=== PATIENT | female | born 1995 | race Caucasian/White ===

== ENCOUNTER 2023-02-20 11:14 | Outpatient (CLI) | payer BC, MEDICAID, SELFPAY | END 2023-02-20 11:15 | disposition home or self-care (01) | LOC: RAD CLINIC 02-22 13:28 → ORTOACUTE 02-22 13:28 | PROVIDERS: PCP Nurse Practitioner Family; Visit Provider Physician Assistant | DX: S62.632G Displaced fracture of distal phalanx of right middle finger, subsequent encounter for fracture with delayed healing; W17.89XD Other fall from one level to another, subsequent encounter | CPT/HCPCS: 73130 ==

== ENCOUNTER 2023-02-20 16:28 | Day surgery (SDC) | payer BC, MEDICAID, SELFPAY ==
--- NOTE | 2023-02-20 | XR_ITS ---
WS: [id number] INTRAOPERATIVE TECHNIQUE: 1 Spot fluoroscopic images for intraoperative purposes. FLUOROSCOPY TIME: 25 seconds CLINICAL INFORMATION: DUNG PICS COMPARISON: None. FINDINGS: Images obtained for intraoperative purposes IMPRESSION: Images obtained for intraoperative purposes.
[2023-02-20 16:35] VITALS: BMI 29.9
[2023-02-20 16:43] VITALS: BP 125/80; PULSE 85; RESP 16; TEMP 36.6; O2SAT 100
[2023-02-20 17:05] LABS: OR HCG Qualitative Urine Negative (Negative)
[2023-02-20] MEDS: sodium chloride 0.9% 1,000 ML 30 ML IV (17:31)
[2023-02-20] MEDS: scopolamine 1.5 Patch 1 PATCH TRANSDERMA (17:31)
[2023-02-20] MEDS: ketorolac 30 mg/mL INJ IVP (17:33)
[2023-02-20] MEDS: ondansetron 2 mg/ML SDV 2 mL 4 MG IVP (17:34)
[2023-02-20] MEDS: acetaminophen 1,000 MG/100 ML PIGGYBACK 400 MG IV (17:37)
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
--- NOTE | 2023-02-20 18:21 | W.PM.OPSUD ---
Surgery/Procedure H&P Update DATE OF PROCEDURE: February 20, 2023 DATE H&P PERFORMED: 02/20/23 H&P UPDATE INFORMATION: I have reviewed H&P completed within last 30 days, I have examined patient prior to procedure and No changes to prior documentation PREOP DIAGNOSIS: Right middle finger traumatic amputation PRIMARY INDICATION FOR PROCEDURE: Right middle finger traumatic amputation PLANNED PROCEDURE: Operation Date: 02/20/23 17:50 Proposed Procedures p Right middle finger amputation revision(Right) - Wang Maki DO
[2023-02-20] MEDS: midazolam 1 mg/mL INJ 2 mL 2 MG IVP (18:25)
[2023-02-20] MEDS: ceFAZolin 2,000 MG in sodium chloride 0.9% (plus) 50 ML 100 MG IV (18:28)
[2023-02-20] MEDS: ceFAZolin 1,000 mg SDV 1000 MG IRRIGATION (19:19)
[2023-02-20] MEDS: BUPivacaine 0.5% INJ 30 mL 5 ML INJECTION (19:20)
[2023-02-20] MEDS: ROPivacaine 0.5% SDV 30 mL 25 MG INJECTION (19:22)
--- NOTE | 2023-02-20 19:25 | SUR.OPER ---
RIGHT MIDDLE FINGER TOURNIQUET TIME 13 MINUTES
--- NOTE | 2023-02-20 19:26 | SUR.OPER ---
RIGHT MIDDLE FINGER TOURNIQUET 37 MINUTES
[2023-02-20 19:33] VITALS: BP 116/64; PULSE 88; RESP 16; TEMP 36.1; O2SAT 98
--- NOTE | 2023-02-20 19:33 | P.BOP_ITS ---
Date of Procedure: [February 20, 2023] Surgeon: [Dr. Shanthi DO] Radio Survey Worker(s): [Soren Maki PA-C] Procedure(s) performed: [Right middle finger amputation revision] Findings of the procedure(s): [Right middle finger traumatic amputation] Estimated blood loss: [2 ml] Specimen(s) removed: [Distal fingertip] Post-operative diagnosis: [Right middle finger traumatic amputation]
--- NOTE | 2023-02-20 19:35 | PM.PACU ---
PACU note Narrative: Patient is a 27-year-old female just underwent a right middle finger amputation revision. Patient transferred to PACU in stable condition. Pain is well controlled. Dressing on hand is dry and in place. Patient's fingers are warm and well-perfused. Patient can wiggle fingers. normal cap refill under 2 seconds. Patient has normal elbow range of motion. Unable to assess sensation to hand due to residual localized anesthetic. Exam: awake Disposition: discharged
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
[2023-02-20 19:40] VITALS: BP 114/82; PULSE 83; RESP 16; O2SAT 98
[2023-02-20 19:47] VITALS: BP 138/81; PULSE 71; RESP 14; TEMP 36.4; O2SAT 99
--- NOTE | 2023-02-20 19:49 | P.PCN_ITS ---
PACU note Narrative: VSS, Good respiratory effort, report to COLD WORKING INSPECTOR Exam: awake
--- NOTE | 2023-02-20 19:49 | PM.PACU ---
PACU note Narrative: VSS, Good respiratory effort, report to CIVILIAN JAIL OFFICER Exam: awake
[2023-02-20 20:10] VITALS: BP 126/89; PULSE 71; RESP 14; O2SAT 98
[2023-02-20 21:07] VITALS: BP 133/78; PULSE 72; RESP 16; TEMP 36.7; O2SAT 99
== END 2023-02-20 21:05 | disposition home or self-care (01) ==
PROVIDERS: Anesthesiology; PCP Nurse Practitioner Family; Visit Provider Student in an Organized Health Care Education/Training Program
PROC: (CPT 26951; principal; 2023-02-20 17:40)
DX: S68.122A Partial traumatic metacarpophalangeal amputation of right middle finger, initial encounter (principal); W19.XXXA Unspecified fall, initial encounter; S62.632G Displaced fracture of distal phalanx of right middle finger, subsequent encounter for fracture with delayed healing; W17.89XD Other fall from one level to another, subsequent encounter
CPT/HCPCS: 26951; 73120; 73130; 76000; 81025; 84703; J0131; J0690; J1885; J2250; J2405; J2704; J2795; J3010; J3490; J7030

== ENCOUNTER → 2023-02-22 13:19 | Outpatient (BNVA) | payer BC, MEDICAID, SELFPAY | PROVIDERS: PCP Nurse Practitioner Family; Referring Provider Nurse Practitioner Family; Visit Provider Physician Assistant | DX: S22.009A Unspecified fracture of unspecified thoracic vertebra, initial encounter for closed fracture (principal); S22.048A Other fracture of fourth thoracic vertebra, initial encounter for closed fracture; V87.8XXA Person injured in other specified noncollision transport accidents involving motor vehicle (traffic), initial encounter | CPT/HCPCS: 72072; 72100 ==

== ENCOUNTER → 2023-09-04 07:53 | Outpatient (BNVA) | payer BC, MEDICAID, SELFPAY | PROVIDERS: PCP Nurse Practitioner Family; Visit Provider Nurse Practitioner Women's Health | DX: N92.6 Irregular menstruation, unspecified (principal) | CPT/HCPCS: 81025; 84702; 86850; 86900 ==

== ENCOUNTER → 2023-10-02 13:28 | Outpatient (BNVA) | payer BC, MEDICAID, SELFPAY | PROVIDERS: PCP Nurse Practitioner Family; Visit Provider Nurse Practitioner Women's Health | DX: N83.8 Other noninflammatory disorders of ovary, fallopian tube and broad ligament (principal) | CPT/HCPCS: 76830 ==

== ENCOUNTER → 2023-11-29 08:01 | Outpatient (BNVA) | payer OTHER, SELFPAY | PROVIDERS: Visit Provider Nurse Practitioner Women's Health | DX: N92.6 Irregular menstruation, unspecified (principal); N96 Recurrent pregnancy loss | CPT/HCPCS: 81025; 84702 ==

== ENCOUNTER 2023-12-01 13:18 | Outpatient (CLI) | payer OTHER, SELFPAY | END 2023-12-01 13:19 | disposition home or self-care (01) | PROVIDERS: Visit Provider Nurse Practitioner Women's Health | DX: N96 Recurrent pregnancy loss (principal) | CPT/HCPCS: 36415; 84702 ==

== ENCOUNTER 2023-12-10 10:52 | Emergency (ER) | payer OTHER, SELFPAY ==
--- NOTE | 2023-12-10 10:56 | USR_ITS ---
PROCEDURE INFORMATION: Exam: US , Transvaginal Exam date and time: 12/10/2023 11:18 AM Age: 28 years old Clinical indication: Screening exam; Routine US, uterus; Additional info: Approx 8 wks preg; Spotting LABS AND CLINICAL REPORTS: Last menstrual period start date: 10/26/2023 Gestational age (Established): 6 w 3 d Estimated due date (Established): 08/01/2024 TECHNIQUE: Imaging protocol: Real-time transvaginal obstetrical ultrasound of the maternal pelvis with image documentation. Transvaginal imaging was used for better evaluation of the fetus, adnexa, and/or cervix. COMPARISON: US transvaginal [id number] 10/02/2023 1:37 PM FINDINGS: Gestation: There is a intrauterine gestational sac with a Yolk sac measures 2.7 mm. A pole is not visible. BIOMETRY: Mean sac diameter: 1.4 cm. EGA (MSD) is 6 w 2 d The uterus shows unremarkable myometrial echogenicity. The uterus measures 8.4 cm x 3.9 cm x 5 cm The right ovary measures 2.3 cm x 2 cm x 2.5 cm. The left ovary 3.3 cm x 3.6 cm x 3.8 cm. there is a left ovarian cyst which appears benign measuring 1.9 cm x 2 cm x 1.8 cm. US/US OB transvaginal [id number] IMPRESSION: 1. There is an intrauterine gestational sac and yolk sac without a pole 2. The gestational sac diameter of 1.4 cm, 6 weeks 2 days gestational age 3. Benign cyst left ovary. 4. Negative uterus and cervix 5. Negative right ovary.
[2023-12-10 11:41] VITALS: BP 147/79; PULSE 92; RESP 18; TEMP 36.8; O2SAT 100; BMI 31.4
--- NOTE | 2023-12-10 11:46 | W.ED.FEMALGU ---
HPI - Female Genitourinary General: Chief complaint: Vaginal Bleeding Stated complaint: spotting (8wks preg) Time Seen by Provider: 12/10/23 11:00 Source: patient Mode of arrival: ambulatory Limitations: no limitations History of Present Illness: Patient is a 28-year-old [id number] female at approximately 8 weeks here for spotting x 2 days. States she is noticing bright red blood only when she wipes. She has not noticed any blood otherwise. She is not having any pelvic pain or cramping. has been confirmed through [facility]. Has a dating US scheduled 12/17. Blood type B+. MD elicited complaint: vaginal bleeding and possible miscarriage Onset (ago): day(s) (yesterday) Severity: mild Vaginal discharge: none Vaginal bleeding: scant Exacerbating factors: none Relieving factors: none Associated symptoms: Reports no associated symptoms; Deny abdominal pain or nausea Treatment prior to arrival: none Sexual activity: Yes Patient : Yes Related Data Previous Rx's Medication Instructions Recorded cephalexin 500 mg capsule 500 mg PO Q6H 7 days #28 caps 11/29/23 Allergies Allergy/AdvReac Type Severity Reaction Status Date / Time No Known Allergies Allergy Verified 12/10/23 11:44 Review of Systems Const: Denies: fever(s) Card: Denies: chest pain Resp: Denies: dyspnea GI: Denies: abdominal pain, nausea, vomiting or change in bowel habits : Denies: flank pain, difficulty voiding, dysuria, urinary frequency, urinary urgency or urinary hesitancy Neuro: Denies: dizziness [facility] ED PFSH: Medical History Depression Family History Mother Hyperlipidemia Father Hypertension Diabetes Denies family history of Colon cancer Ovarian cancer Heart disease Breast cancer Uterine cancer Thyroid disease Stroke Social History Smoking and tobacco/nicotine status: never used tobacco/nicotine Alcohol intake: never Physical Exam Const: COMMON NORMALS: no acute distress, average body habitus, patient oriented x3, no limitations, healthy appearing, alert and well nourished Resp: COMMON NORMALS: normal respiratory effort GI: COMMON NORMALS: Normal to inspection, nondistended, normoactive bowel sounds present, Soft to palpation, non-tender, No hepatosplenomegaly present and no masses PALPATION: Yes Soft to palpation and Yes No hepatosplenomegaly present : COMMON NORMALS: Yes no CVA tenderness BLADDER/KIDNEY EXAM: Yes no CVA tenderness OTHER: deferred Back/Pelvis: COMMON NORMALS: no CVA tenderness Neuro: BIANCA COMA SCALE: document GCS findings Bianca coma scale eye opening: Spontaneous [place] coma scale verbal response: Orientated [place] coma scale motor response: Obey commands Bianca coma scale total score: 15 COMMON NORMALS: patient oriented x3 SENSORIUM/ORIENTATION: Yes alert Course Vital Signs: Vital signs: Vital Signs Temperature 98.3 F 12/10/23 11:41 Pulse Rate 88 12/10/23 12:58 Respiratory Rate 18 12/10/23 11:41 Blood Pressure 143/88 12/10/23 12:58 Pulse Oximetry 99 12/10/23 12:58 Oxygen Delivery Me thod Room Air 12/10/23 11:41 MDM - Female Medical Decision Making Patient here for very light spotting only noticeable when she wipes. Blood work overall is unremarkable. Her hCG is over 19,000. Last hCG performed was on 11/30 and was 950. US today showing an intrauterine gestational sac and yolk sac without a pole. Most likely secondary to the very early as they got her at 6w2d gestation. She already has a repeat ultrasound scheduled for 12/17-recommend she keep this. Return to ED precautions given. Medical Records I reviewed the patient's medical records. Lab Data I reviewed the patient's lab results. 12/10/23 11:51 12/10/23 11:51 Radiology Impressions Transvaginal US 12/10/23 10:56 IMPRESSION: 1. There is an intrauterine gestational sac and yolk sac without a pole 2. The gestational sac diameter of 1.4 cm, 6 weeks 2 days gestational age 3. Benign cyst left ovary. 4. Negative uterus and cervix 5. Negative right ovary. Laboratory Results WBC 6.27 10^3/uL (3.29-11.43) 12/10/23 11:51 RBC 3.97 10^6/uL (3.85-5.65) 12/10/23 11:51 Hgb 12.70 g/dL (11.27-16.99) 12/10/23 11:51 Hct 35.8 % (36-47) L 12/10/23 11:51 MCV 90.2 fl (85-98) 12/10/23 11:51 MCH 32.0 pg (27-33) 12/10/23 11:51 MCHC 35.5 g/dL (30-55) 12/10/23 11:51 RDW 13.0 % (12.1-15.1) 12/10/23 11:51 Plt Count 198 10^3/cmm (157-399) 12/10/23 11:51 MPV 11.2 fL (7.4-10.4) H 12/10/23 11:51 Neut % (Auto) 70.8 % 12/10/23 11:51 Lymph % (Auto) 22.5 % 12/10/23 11:51 [place] % (Auto) 5.9 % 12/10/23 11:51 Eos % (Auto) 0.0 % 12/10/23 11:51 Baso % (Auto) 0.5 % 12/10/23 11:51 Neut # (Auto) 4.44 10^3/uL (1.8-7.7) 12/10/23 11:51 Lymph # (Auto) 1.4 10^3/uL (0.8-4.8) 12/10/23 11:51 [place] # (Auto) 0.4 10^3/uL (0.2-0.9) 12/10/23 11:51 Eos # (Auto) 0.0 10^3/uL (0.0-0.8) 12/10/23 11:51 Baso # (Auto) 0.0 10^3/uL (0.0-0.1) 12/10/23 11:51 Nucleated RBC % (auto) 0 % 12/10/23 11:51 Nucleated RBCs # 0.0 /100WBC 12/10/23 11:51 Sodium 139 mmol/L (136-145) 12/10/23 11:51 Potassium 3.8 mmol/L (3.5-5.1) 12/10/23 11:51 Chloride 106 mmol/L (98-107) 12/10/23 11:51 Carbon Dioxide 24 mmol/L (22-29) 12/10/23 11:51 Anion Gap 12.8 (5-19) 12/10/23 11:51 BUN 7 mg/dL (6-20) 12/10/23 11:51 Creatinine 0.6 mg/dL (0.5-0.9) 12/10/23 11:51 GFR Calculation 119.0 mL/min (90-130) 12/10/23 11:51 Glucose 99 mg/dL (65-115) 12/10/23 11:51 Calculated Osmolality 286 mOsm/kg (285-295) 12/10/23 11:51 Calcium 8.5 mg/dL (8.5-10.5) 12/10/23 11:51 Total Bilirubin 1.3 mg/dL (0.15-1.2) H 12/10/23 11:51 AST 15 U/L (0-32) 12/10/23 11:51 ALT 13 U/L (0-33) 12/10/23 11:51 Alkaline Phosphatase 56 U/L (35-105) 12/10/23 11:51 Total Protein 7.0 g/dL (6.6-8.7) 12/10/23 11:51 Albumin 4.2 g/dL (3.5-5.2) 12/10/23 11:51 Globulin 2.8 g/dL (1.3-4.6) 12/10/23 11:51 Ser , Semi-Qnt 18673.00 mIU/mL 12/10/23 11:51 All radiology interpretation(s) finalized by discharge Discharge Plan Discharge Patient Disposition: Home Clinical Impression: Bleeding in early Condition: Stable Prescriptions: No Action cephalexin 500 mg capsule 500 mg PO Q6H 7 Days Qty: 28 0RF Rx Instructions: take one tab four times daily for seven days Discharge Orders: Discharge ED (Routine); Ordered 12/10/23 Ordered By: Rachael Reynoso Referrals: Jenna Lott NP [Primary Care Provider] - Activity Restrictions/Additional Instructions: As we discussed, your hCG is seemingly rising appropriately. Ultrasound today showing an intrauterine gestational sac and yolk sac but no pole at this time. I suspect this is secondary to a very early gestation. Recommend you continue plan for repeat ultrasound on 12/17. Please follow-up with women's health. You may return to the emergency department for onset of abdominal/pelvic pain, severe vaginal bleeding, or any other concerns you may have. Coding Level of Care Code ED Latex Caster for Immanuel Allan
[2023-12-10 12:02] LABS: Basophils % 0.5 %; Hematocrit 35.8 % (36-47); Lymphocytes # 1.4 10^3/uL (0.8-4.8); Lymphocytes % 22.5 %; Mean Corpuscular HGB Conc 35.5 g/dL (30-55); Mean Corpuscular Volume 90.2 fl (85-98); Mean Platelet Volume 11.2 fL (7.4-10.4); Monocytes # 0.4 10^3/uL (0.2-0.9); Monocytes % 5.9 %; Neutrophils # 4.44 10^3/uL (1.8-7.7); Neutrophils % 70.8 %; Nucleated Red Blood Cells % 0 %; Platelet Count 198 10^3/cmm (157-399); Red Blood Count 3.97 10^6/uL (3.85-5.65); White Blood Count 6.27 10^3/uL (3.29-11.43)
[2023-12-10 12:37] LABS: Alanine Aminotransferase 13 U/L (0-33); Albumin Level 4.2 g/dL (3.5-5.2); Alkaline Phosphatase 56 U/L (35-105); Anion Gap 12.8 (5-19); Aspartate Amino Transferase 15 U/L (0-32); Blood Urea Nitrogen 7 mg/dL (6-20); Calcium 8.5 mg/dL (8.5-10.5); Carbon Dioxide 24 mmol/L (22-29); Chloride 106 mmol/L (98-107); Creatinine Clr Calc Pharmacy 156.3757; Globulin 2.8 g/dL (1.3-4.6); Glucose 99 mg/dL (65-115); Osmolality Calculated 286 mOsm/kg (285-295); Potassium 3.8 mmol/L (3.5-5.1); Sodium 139 mmol/L (136-145); Total Bilirubin 1.3 mg/dL (0.15-1.2)
[2023-12-10 12:58] VITALS: BP 143/88; PULSE 88; O2SAT 99
== END 2023-12-10 12:59 | disposition home or self-care (01) ==
PROVIDERS: Emergency Provider Physician Assistant; PCP Nurse Practitioner Women's Health
DX: O20.9 Hemorrhage in early pregnancy, unspecified (principal); Z3A.08 8 weeks gestation of pregnancy
CPT/HCPCS: 36415; 76817; 80053; 84702; 85025; 99284

== ENCOUNTER → 2023-12-18 08:06 | Outpatient (BNVA) | payer OTHER, MEDICAID, SELFPAY | PROVIDERS: PCP Nurse Practitioner Women's Health; Visit Provider Nurse Practitioner Women's Health | DX: Z36.87 Encounter for antenatal screening for uncertain dates (principal); Z3A.01 Less than 8 weeks gestation of pregnancy | CPT/HCPCS: 76801 ==

== ENCOUNTER → 2023-12-31 11:04 | Outpatient (BNVA) | payer BC, MEDICAID, SELFPAY | PROVIDERS: Visit Provider Nurse Practitioner Women's Health | DX: Z36.9 Encounter for antenatal screening, unspecified (principal) | CPT/HCPCS: 76801 ==

== ENCOUNTER → 2024-01-10 09:14 | Outpatient (BNVA) | payer BC, MEDICAID, SELFPAY | PROVIDERS: Visit Provider Nurse Practitioner Women's Health | DX: Z34.00 Encounter for supervision of normal first pregnancy, unspecified trimester (principal) | CPT/HCPCS: 80307; 84315; 84443; 85025; 86592; 86762; 86803; 86850; 86900; 87086; 87340; 87491; 87591; 87806 ==

== ENCOUNTER → 2024-01-30 14:29 | Outpatient (BNVA) | payer MEDICAID, SELFPAY | PROVIDERS: Visit Provider Obstetrics & Gynecology | DX: Z34.90 Encounter for supervision of normal pregnancy, unspecified, unspecified trimester (principal) | CPT/HCPCS: 84315; 88175 ==

== ENCOUNTER 2024-02-17 12:47 | Emergency (ER) | payer MEDICAID, SELFPAY ==
[2024-02-17 13:45] LABS: Basophils % 0.3 %; Eosinophils # 0.1 10^3/uL (0.0-0.8); Eosinophils % 0.9 %; Hematocrit 31.9 % (36-47); Lymphocytes # 1.4 10^3/uL (0.8-4.8); Lymphocytes % 17.6 %; Mean Corpuscular HGB Conc 34.5 g/dL (30-55); Mean Corpuscular Hemoglobin 32.1 pg (27-33); Mean Platelet Volume 11.2 fL (7.4-10.4); Monocytes # 0.4 10^3/uL (0.2-0.9); Neutrophils # 5.92 10^3/uL (1.8-7.7); Neutrophils % 75.9 %; Nucleated Red Blood Cells % 0 %; Platelet Count 188 10^3/cmm (157-399); Red Blood Count 3.43 10^6/uL (3.85-5.65); Red Cell Distribution Width 14.2 % (12.1-15.1); White Blood Count 7.79 10^3/uL (3.29-11.43)
[2024-02-17 13:50] VITALS: BP 113/75; PULSE 80; RESP 14; TEMP 36.7; O2SAT 100
[2024-02-17 14:04] LABS: Alanine Aminotransferase 18 U/L (0-33); Albumin Level 3.5 g/dL (3.5-5.2); Alkaline Phosphatase 70 U/L (35-105); Anion Gap 15.8 (5-19); Aspartate Amino Transferase 15 U/L (0-32); Blood Urea Nitrogen 7 mg/dL (6-20); Calcium 8.7 mg/dL (8.5-10.5); Carbon Dioxide 21 mmol/L (22-29); Chloride 105 mmol/L (98-107); Creatinine Clr Calc Pharmacy 119.9804; Globulin 2.8 g/dL (1.3-4.6); Glomerular Filtration Rate 85.4 mL/min (90-130); Glucose 86 mg/dL (65-115); Osmolality Calculated 283 mOsm/kg (285-295); Potassium 3.8 mmol/L (3.5-5.1); Sodium 138 mmol/L (136-145); Total Bilirubin 1.1 mg/dL (0.15-1.2); Total Protein 6.3 g/dL (6.6-8.7)
--- NOTE | 2024-02-19 16:05 | PC.NURSE ---
Contacted pt due to LWBS on 02/17/24. Pt states she is doing well and followed up with OB.
== END 2024-02-17 17:14 | disposition left against medical advice (07) ==
PROVIDERS: Emergency Medicine; Emergency Provider Family Medicine
DX: Z53.21 Procedure and treatment not carried out due to patient leaving prior to being seen by health care provider (principal)
CPT/HCPCS: 36415; 80053; 85025; 99283

== ENCOUNTER → 2024-02-18 13:51 | Outpatient (BNVA) | payer MEDICAID, SELFPAY | PROVIDERS: Visit Provider Nurse Practitioner Women's Health | DX: Z36.9 Encounter for antenatal screening, unspecified (principal) | CPT/HCPCS: 76815; 84315 ==

== ENCOUNTER → 2024-03-04 09:53 | Outpatient (BNVA) | payer MEDICAID, SELFPAY | PROVIDERS: Visit Provider Nurse Practitioner Women's Health | DX: Z34.90 Encounter for supervision of normal pregnancy, unspecified, unspecified trimester (principal); Z3A.10 10 weeks gestation of pregnancy | CPT/HCPCS: 82105; 84315 ==

== ENCOUNTER → 2024-03-12 14:23 | Outpatient (BNVA) | payer BC, SELFPAY | PROVIDERS: Visit Provider Obstetrics & Gynecology | DX: Z36.9 Encounter for antenatal screening, unspecified (principal) | CPT/HCPCS: 76805 ==

== ENCOUNTER → 2024-03-21 14:16 | Outpatient (BNVA) | payer BC, SELFPAY | PROVIDERS: Visit Provider Obstetrics & Gynecology | DX: Z34.90 Encounter for supervision of normal pregnancy, unspecified, unspecified trimester (principal) | CPT/HCPCS: 84315 ==

== ENCOUNTER → 2024-04-10 13:34 | Outpatient (BNVA) | payer BC, SELFPAY | PROVIDERS: Visit Provider Obstetrics & Gynecology | DX: Z36.9 Encounter for antenatal screening, unspecified (principal) | CPT/HCPCS: 76816 ==

== ENCOUNTER → 2024-04-30 13:17 | Outpatient (BNVA) | payer BC, SELFPAY | PROVIDERS: Visit Provider Nurse Practitioner Women's Health | DX: Z34.90 Encounter for supervision of normal pregnancy, unspecified, unspecified trimester (principal) | CPT/HCPCS: 84315 ==

== ENCOUNTER → 2024-05-16 14:18 | Outpatient (BNVA) | payer BC, SELFPAY | PROVIDERS: Visit Provider Obstetrics & Gynecology | DX: Z34.90 Encounter for supervision of normal pregnancy, unspecified, unspecified trimester (principal) | CPT/HCPCS: 82950; 84315; 85025 ==

== ENCOUNTER → 2024-05-26 08:56 | Outpatient (BNVA) | payer BC, SELFPAY | PROVIDERS: Visit Provider Obstetrics & Gynecology | DX: Z34.80 Encounter for supervision of other normal pregnancy, unspecified trimester (principal) | CPT/HCPCS: 84315 ==

== ENCOUNTER → 2024-06-09 09:00 | Outpatient (BNVA) | payer BC, SELFPAY | PROVIDERS: Visit Provider Obstetrics & Gynecology | DX: Z34.90 Encounter for supervision of normal pregnancy, unspecified, unspecified trimester (principal) | CPT/HCPCS: 84315 ==

== ENCOUNTER 2024-06-14 21:08 | Outpatient (CLI) | payer BC, MEDICAID, SELFPAY ==
[2024-06-14] VITALS (9 sets, daily range): BP systolic 115–150; BP diastolic 63–84; PULSE 97–123; RESP 18; TEMP 37.2
[2024-06-14 21:37] LABS: Bacteria Urine 1+ /hpf; RBC Urine 0-2 /hpf (0-2)
[2024-06-14 21:39] LABS: Add Urine Culture? No; Bilirubin Urine Neg (Negative); Blood Urine Neg (Negative); Glucose Urine UA Norm (Normal); Ketones Urine Negative (Negative); Leukocyte Esterase Urine 1+ (Negative); Nitrate Urine Negative (Negative); Protein Urine Neg (Negative); Specific Gravity, Urine 1.015 (1.005-1.030); Urine Appearance Cloudy (CLEAR); Urine Color Yellow (Yellow); Urobilinogen Urine Norm (Negative); pH Urine 9 (5-7)
[2024-06-15] VITALS: BP 115/63; PULSE 104; O2SAT 95
[2024-06-15] MEDS: nitrofurantoin SR (BID) 100 mg Capsule PO ×2 (00:03)
[2024-06-15] MEDS: acetaminophen 500 mg Tablet 1000 MG PO (00:04)
== END 2024-06-15 00:10 | disposition home or self-care (01) ==
LOC: OPOB 21:13 → OBGYN 21:14
PROVIDERS: Visit Provider Obstetrics & Gynecology
DX: O26.899 Other specified pregnancy related conditions, unspecified trimester (principal); Z3A.00 Weeks of gestation of pregnancy not specified; R68.83 Chills (without fever); R51.9 Headache, unspecified; R23.2 Flushing
CPT/HCPCS: 59025; 81001; 99211

== ENCOUNTER → 2024-06-24 12:27 | Outpatient (BNVA) | payer BC, MEDICAID, SELFPAY | PROVIDERS: Visit Provider Nurse Practitioner Women's Health | DX: Z34.90 Encounter for supervision of normal pregnancy, unspecified, unspecified trimester (principal) | CPT/HCPCS: 76816; 84315; 87086 ==

== ENCOUNTER 2024-07-06 18:00 | Outpatient (CLI) | payer BC, MEDICAID, SELFPAY ==
[2024-07-06] VITALS (11 sets, daily range): BP systolic 119–135; BP diastolic 67–82; PULSE 82–100; RESP 16; O2SAT 98; BMI 37.9
[2024-07-06 19:00] LABS: Basophils % 0.3 %; Eosinophils # 0.1 10^3/uL (0.0-0.8); Eosinophils % 0.9 %; Hematocrit 30.7 % (36-47); Lymphocytes # 1.6 10^3/uL (0.8-4.8); Lymphocytes % 14.4 %; Mean Corpuscular HGB Conc 35.2 g/dL (30-55); Mean Corpuscular Hemoglobin 32.3 pg (27-33); Mean Corpuscular Volume 91.9 fl (85-98); Mean Platelet Volume 11.5 fL (7.4-10.4); Monocytes # 0.5 10^3/uL (0.2-0.9); Monocytes % 4.6 %; Neutrophils # 9.01 10^3/uL (1.8-7.7); Neutrophils % 79.3 %; Nucleated Red Blood Cells % 0 %; Platelet Count 167 10^3/cmm (157-399); Red Blood Count 3.34 10^6/uL (3.85-5.65); Red Cell Distribution Width 14.6 % (12.1-15.1); White Blood Count 11.36 10^3/uL (3.29-11.43)
[2024-07-06 19:07] LABS: Bacteria Urine 2+ /hpf; RBC Urine 0-2 /hpf (0-2)
[2024-07-06 19:16] LABS: Add Urine Microscopic? YES; Bilirubin Urine Negative (Negative); Blood Urine Negative (Negative); Glucose Urine UA Trace (Normal); Ketones Urine 1+ (Negative); Leukocyte Esterase Urine 1+ (Negative); Nitrate Urine Negative (Negative); Protein Urine Negative (Negative); Specific Gravity, Urine 1.023 (1.005-1.030); Urine Appearance Clear (CLEAR); Urine Color Orange (Yellow); pH Urine 5.5 (5-7)
[2024-07-06 19:18] LABS: Alanine Aminotransferase 17 U/L (0-33); Albumin Level 3.2 g/dL (3.5-5.2); Alkaline Phosphatase 128 U/L (35-105); Anion Gap 17.5 (5-19); Aspartate Amino Transferase 17 U/L (0-32); Blood Urea Nitrogen 6 mg/dL (6-20); Carbon Dioxide 18 mmol/L (22-29); Chloride 103 mmol/L (98-107); Creatinine Clr Calc Pharmacy 258.5526; Globulin 2.9 g/dL (1.3-4.6); Glomerular Filtration Rate 190.1 mL/min (90-130); Glucose 118 mg/dL (65-115); Osmolality Calculated 279 mOsm/kg (285-295); Potassium 3.5 mmol/L (3.5-5.1); Sodium 135 mmol/L (136-145); Total Bilirubin 0.8 mg/dL (0.15-1.2); Total Protein 6.1 g/dL (6.6-8.7); Uric Acid 3.7 mg/dL (2.4-5.7)
[2024-07-06 19:24] LABS: UPRO/UCREAT Ratio 0.08 mg/mg CR; Urine Creatinine 132 mg/dL (28-217); Urine Protein Random 10 mg/dL
[2024-07-06] MEDS: SODIUM CHLORIDE 0.9% IV (20:07)
[2024-07-06] MEDS: CEFAZOLIN IV (20:07)
[2024-07-06] MEDS: sodium chloride 0.9% 500 ML 125 ML IV (20:07)
[2024-07-06 20:47] LABS: Add Urine Culture? Yes
== END 2024-07-06 20:51 | disposition home or self-care (01) ==
LOC: OPOB 18:03 → OBGYN 18:04
PROVIDERS: Visit Provider Obstetrics & Gynecology
DX: O13.9 Gestational [pregnancy-induced] hypertension without significant proteinuria, unspecified trimester (principal); Z3A.00 Weeks of gestation of pregnancy not specified; H53.9 Unspecified visual disturbance
CPT/HCPCS: 36415; 59025; 80053; 81001; 82570; 84156; 84550; 85025; 87086; 99211; J0690; J7040

== ENCOUNTER 2024-07-07 14:50 | Outpatient (CLI) | payer BC, MEDICAID, SELFPAY ==
[2024-07-07] VITALS (9 sets, daily range): BP systolic 125–135; BP diastolic 71–79; PULSE 76–88; RESP 16–17; BMI 38.5
== END 2024-07-07 16:45 | disposition home or self-care (01) ==
LOC: OPOB 14:51 → OBGYN 14:52
PROVIDERS: Visit Provider Obstetrics & Gynecology
DX: O13.9 Gestational [pregnancy-induced] hypertension without significant proteinuria, unspecified trimester (principal); Z3A.00 Weeks of gestation of pregnancy not specified
CPT/HCPCS: 59025; 84315; 87081; 99211

== ENCOUNTER → 2024-07-14 13:47 | Outpatient (BNVA) | payer BC, MEDICAID, SELFPAY | PROVIDERS: Visit Provider Obstetrics & Gynecology | DX: Z34.80 Encounter for supervision of other normal pregnancy, unspecified trimester (principal) | CPT/HCPCS: 84315 ==

== ENCOUNTER 2024-07-15 07:00 | Outpatient (CLI) | payer BC, MEDICAID, SELFPAY ==
[2024-07-15 07:00] VITALS: RESP 17; BMI 38.0
[2024-07-15 07:06] VITALS: BP 146/78; PULSE 76
[2024-07-15 07:20] VITALS: BP 142/79; PULSE 90
[2024-07-15 07:35] VITALS: BP 132/74; PULSE 83
== END 2024-07-15 07:48 | disposition home or self-care (01) ==
LOC: OPOB 07:00 → OBGYN 07:01
PROVIDERS: Visit Provider Obstetrics & Gynecology
DX: O26.899 Other specified pregnancy related conditions, unspecified trimester (principal); Z3A.00 Weeks of gestation of pregnancy not specified; M54.31 Sciatica, right side
CPT/HCPCS: 59025; 99211

== ENCOUNTER 2024-07-17 20:31 | Outpatient (CLI) | payer BC, MEDICAID, SELFPAY ==
[2024-07-17] VITALS (14 sets, daily range): BP systolic 118–142; BP diastolic 64–80; PULSE 66–85; RESP 16–18; BMI 38.6
[2024-07-17] MEDS: oxyCODONE-APAP 5-325 mg Tablet 2 TAB PO (22:17)
== END 2024-07-17 23:39 | disposition home or self-care (01) ==
LOC: OPOB 20:32 → OBGYN 20:33
PROVIDERS: Visit Provider Obstetrics & Gynecology
DX: O26.899 Other specified pregnancy related conditions, unspecified trimester (principal); Z3A.00 Weeks of gestation of pregnancy not specified; M54.9 Dorsalgia, unspecified
CPT/HCPCS: 59025; 99211; J9999

== ENCOUNTER → 2024-07-21 14:07 | Outpatient (BNVA) | payer BC, SELFPAY | PROVIDERS: Visit Provider Obstetrics & Gynecology | DX: Z34.90 Encounter for supervision of normal pregnancy, unspecified, unspecified trimester (principal) | CPT/HCPCS: 84315 ==

== ENCOUNTER 2024-07-29 05:03 | Inpatient (IN) | payer BC, MEDICAID, SELFPAY ==
--- NOTE | 2024-07-24 08:14 | ANES.PREANE2 ---
Pre-Anesthetic Assessment Height/Weight: Height 5 ft 6 in Preop Diagnosis: Planned Operation Date: 07/29/24 07:20 Proposed Procedures p Section Repeat 80870, O34.219(Not Applicable) - Ida Blancas, DO Was Beta Andrew taken within 24 hours: N/A Was Clonidine taken within 24 hours: N/A Social No alcohol and No tobacco Exam alert, oriented x 3, clear to auscultation bilaterally and regular rate & rhythm Airway Submandibular: within normal limits Cervical ROM: within normal limits Mallampati: Class III Dentition: full Anesthetic Plan ASA status: 2 Anesthesia: Regional (specify below) Other: G2, P1 scheduled for planned . Prior emergent without issues Patient denies any issues during besides hypertension. No meds for this, they are just monitoring Patient does note a history of low vertebral fracture a year and a half ago. Denies any pulmonary issues Will obtain labs morning of procedure Plan for routine with spinal Medications/Allergies Home Medications ?Medication ?Instructions ?Recorded ?Confirmed ?Last Taken ?Type docosahexaenoic acid 200 mg 1 mg PO DAILY 01/10/24 07/21/24 07/17/24 History capsule ( DHA) ferrous sulfate 325 mg (65 mg 325 mg PO DAILY 04/30/24 07/21/24 07/16/24 History iron) tablet (Feosol) Fioricet 1 tab PO PRN PRN Migraines 07/17/24 07/21/24 07/15/24 History Tylenol 1,000 mg PO PRN PRN Pain, Moderate 07/17/24 07/21/24 07/17/24 12:00 History oxycodone-acetaminophen 5 mg-325 1 tab PO Q8H PRN pain 7 days #14 07/18/24 07/21/24 Unknown Rx mg tablet (Percocet) tabs Allergies Allergy/AdvReac Type Severity Reaction Status Date / Time No Known Allergies Allergy Verified 07/21/24 14:01 [facility] Anesthesia Medical History Depression Surgical History H/O: Family History Mother Hyperlipidemia Father Hypertension Diabetes Denies family history of Colon cancer Ovarian cancer Heart disease Breast cancer Uterine cancer Thyroid disease Stroke Social History Smoking and tobacco/nicotine status: never used tobacco/nicotine Alcohol intake: never
[2024-07-29] VITALS (99 sets, daily range): BP systolic 100–143; BP diastolic 53–86; PULSE 46–155; RESP 15–17; TEMP 36.4–36.6; O2SAT 91–100; BMI 38.4
--- OUTSIDE RECORDS SUMMARY | 2024-07-29 05:07 | XMS_ITS | Data Portability ---
Author Organization Geo GARDNER, Mauri [facility] Address [address] [place] [address] Care Team Providers Care Senior Trial Attorney Name Role Phone LALY GARBER Sheet Metal Roofer Assessment Encounter Date Assessment Date Assessment LastModified by Organization Details LastModified Time 06/05/2024 06/05/2024 ASSESSMENT: Likely urinary incontinence secondary to intra-abdominal pressure from vomiting in late third trimester. Differential includes rupture of membranes (unlikely given current cessation of fluid leakage). PLAN: - Treatment plan: Advise the patient to monitor for any further fluid leakage or recurrence of symptoms. Instruct on the use of a sanitary pad to monitor for amniotic fluid leakage. - Follow-up plan: Schedule a follow-up appointment with JACK MACHINE OPERATOR provider to ensure ongoing maternal- wellbeing and to reassess if further leakage occurs. - Referrals: None at this current juncture, given the cessation of symptoms. I reviewed the available patient chart and updated the problem list, medication list, and assessed the patient s pertinent positives and negatives. Plan of care discussed. Comments and questions addressed. Verbalized understanding. Patient offered and declined video/phone encounter. Patient assessed over asynchronous SMS communication for 40 minutes with 10 minutes spent documenting and care planning. Patient Location: [place] Provider Location: [place] marian Not available 06/05/2024 00:15:23 Plan of Treatment Reminders Order Date Submit Date Provider Last Modified By Organization Details Last Modified Time Details Appointments None record ed. Lab None record ed. Referral None record ed. Procedures None record ed. Surgeries None record ed. Imaging None record ed. Medication Orders None record ed. Patient TargetsNo targets recorded. Patient InstructionsNo instructions recorded. Reason for Referral None Reported. Problems Name Problem SNOMED Code Status Onset Date Resolution Date Notes Provider Name and Address Organization Details Recorded Time Migraine [id number] Active 025 NATHAN BECERRA NP [address], [address], [place], [address], MD [facility] 5 00:10:36 Asthma [id number] Active 025 NATHAN BECERRA NP [address], [address], [place], [address], MD [facility] 5 00:10:43 Problem Notes None recorded. Medical Equipment None Reported. Allergies No known drug allergies Medications Name Sig Start Date Stop Date Status Note LastModified by Organization Details LastModified Time ondansetron HCl 4 mg tablet 4 MG ORALLY EVERY 8 HOURS NEEDED FOR NAUSEA AND VOMITING 06/04 completed Not Available Not Available Not Available cephalexin 500 mg capsule TAKE 1 CAPSULE BY MOUTH FOUR TIMES A DAY FOR 7 DAYS 06/04 completed Not Available Not Available Not Available ferrous sulfate active Not Available Not Available Not Available butalbital- acetaminoph en-caffeine 50 mg-300 mg-40 mg capsule TAKE 1 CAPSULE BY MOUTH THREE TIMES DAILY NEEDED FOR PAIN 06/04 completed Not Available Not Available Not Available + DHA 28 mg iron-800 mcg-200 mg oral pack Take by oral route. active Not Available Not Available No t Available Vitals None Recorded Social History None recorded. Functional Status None recorded. Mental Status None recorded. Family History Nothing Reported. Medical History No medical history recorded. Gynecological HistoryNo gynecological history recorded. Obstetrics History GPAL:G 2 P 1 0 0 1 Type Value Full Term 1 Living 1 Total 2 Past Encounters Encounter ID Performer Location Encounter Start Date Encounter Closed Date Diagnosis/Indication Diagnosis SNOMED-CT Code Diagnosis ICD10 Code Diagnosis Note [id number] NATHAN BECERRA NP [facility] [address], [address] [place] [phone] 06/05/2024 00:13:21 06/13/2024 04:03:58 Health Concerns Section Related Observation LastModified by Organization Detai ls LastModified Time None Recorded Concern Status LastModified by Organization Details LastModified Time None Recorded Advance Directives Directive None Recorded Payers Insurance Date Sequence Insurance Name Policy Number Policy Tony Covered Member ID Tony Member ID Guarantor Name 05/12/2024 *SELF PAY* Mxa maury Gupta 06/03/2024 1 [employer] [place] ([place]ICA[place]ACEMENT - HMO) [id number] Stacy Gupta [id number] Stacy Gupta Notes Date Note Type Note Provider Name and Address Organization Details Recorded Time 06/05/2024 text/html 28yo patient at 31wk 5d gestation presented with acute onset of nausea followed by profuse vomiting and leakage of clear fluid, sufficient to soak shorts. The episode occurred approximately 10 minutes prior to initiating contact at 11:21 PM. The patient reports resolution of symptoms and feels well now. Prior to vomiting, the patient experienced abdominal discomfort with tightening and pain, which subsided post-emesis. The patient had urinated just two minutes before the vomiting episode and denies further fluid leakage. The patient confirms no current pain or discomfort, no further episodes of fluid leakage, and denies any other associated symptoms such as fever or chills. The patient has no known drug allergies and is currently taking vitamins and iron supplements. Her obstetric history includes one prior complicated by a breech presentation, with no other recent medical conditions barring a history of migraines and asthma. NATHAN BECERRA, ROUND KILN DRAWER [address], [address], [place], [address], - [facility] 06/05/2024 00:15:26 OBGyn Episode Ob Episode Information Episode Created Date Number of Fetuses Patient Bloodtype Patient rh Status Prepregnancy Weight lbs Domestic Partner Domestic Partner Phone Father Name Sleep Technologist Status 02/08/20 24 1 OPEN Fetus Data First Name Last Name Admitted to NICU Weight (g) Sex Living Outcome Pediatric Complications Fetus ID Race Codes Race Delivery Type [id number] Dennis Calculation Initial Dennis Date Initial Exam Date Initial Exam Provider Initial Ultrasound Date Last Menstrual Period Date Ultra Sound Weeks Gestation 08/02/2024 0 Eighteen To Twenty Week Dennis Update Ultra Sound Date Fundal Height At Umbil Quickening Date Ultra Sound Latest Weeks Gestation Final Dennis Confirmed By Final Dennis Confirmed Date Final Dennis Date Ultra Sound Latest Days Gestation 0 0 Pre- Flowsheet Flowsheet Date 06/05/2024 Osborn Score Blood Edema Fundus Height Fundus Units Glucose Ketones Leukocytes Nitrite Labor Signs Protein Cervic Dilation Cervic Effacement Cervic Station Type Weight in lbs Pre/Post Dialysis Refused BP Diastolic BP Location Tested BP Systolic BP Type Fetus Heart Rate Present Fetus Movement Comments Menstrual History Last Menstrual Date Menses Monthly On Bcp Conception Prior Menses Frequency Hcg Plus Date Menarche Onset Age Delivery Information Delivery Date Delivery Type Labor Anesthesia Weeks Gestation Incision Type Labor Labor Length Hrs Delivered By Post Complications Tubal Sterilization Discharge Date Comments Discharge Information Feeding Method Contraceptive Method Maternal HG B and HCT Levels
--- OUTSIDE RECORDS SUMMARY | 2024-07-29 05:07 | XMS_ITS ---
Author Organization Unknown Plan of Treatment Patient Care team information Name Category Status Period Participants - - Proposed period not known - - - Proposed period not known - - - Proposed period not known -
[2024-07-29 05:32] LABS: Basophils % 0.3 %; Eosinophils # 0.1 10^3/uL (0.0-0.8); Eosinophils % 1.5 %; Hematocrit 32.5 % (36-47); Lymphocytes # 1.5 10^3/uL (0.8-4.8); Lymphocytes % 20.9 %; Mean Corpuscular HGB Conc 35.1 g/dL (30-55); Mean Corpuscular Hemoglobin 31.8 pg (27-33); Mean Corpuscular Volume 90.8 fl (85-98); Mean Platelet Volume 11.6 fL (7.4-10.4); Monocytes # 0.4 10^3/uL (0.2-0.9); Monocytes % 6.1 %; Neutrophils # 5.06 10^3/uL (1.8-7.7); Neutrophils % 70.8 %; Nucleated Red Blood Cells % 0 %; Platelet Count 173 10^3/cmm (157-399); Red Blood Count 3.58 10^6/uL (3.85-5.65); Red Cell Distribution Width 13.9 % (12.1-15.1); White Blood Count 7.16 10^3/uL (3.29-11.43)
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
[2024-07-29] MEDS: sodium chloride 0.9% 1,000 ML 999 ML IV (06:00)
[2024-07-29 06:39] LABS: Amphetamines Screen Urine Negative (Negative); Barbiturates Screen Urine Negative (Negative); Benzodiazepines Screen Urine Negative (Negative); Cocaine Screen Urine Negative (Negative); Opiate Screen Urine Negative (Negative); PCP Screen Urine Negative (Negative); THC Screen Urine Negative (Negative)
[2024-07-29] MEDS: metoclopramide 5 mg/mL SDV 2 mL 10 MG IVP (06:47)
[2024-07-29] MEDS: citric acid-sodium citrate 30 mL UDC PO (06:47)
[2024-07-29] MEDS: famotidine 20 mg/2 mL INJ IVP (06:48)
--- NOTE | 2024-07-29 06:58 | P.ANESUD_ITS ---
Pre-Anesthetic Update Pre-Anesthetic Assessment: Date of Surgery/Procedure: 07/29/24 Preop Leisa gnosis: Planned Proposed Procedure: Operation Date: 07/29/24 07:20 Proposed Procedures p Section Repeat 94034, O34.219(Not Applicable) - Ida Blancas, DO Any changes to Pre-Anesthetic Assessment?: No Last Intake: Intake Last Liquid Date 07/28/24 Last Liquid Time 21:00 Last Solid Date 07/28/24 Last Solid Time 21:00 Labs Last 48hrs: Short CBC 07/29/24 Range/Units 05:15 WBC 7.16 (3.29-11.43) 10^ 3/uL Hgb 11.40 (11.27-16.99) g/ dL Hct 32.5 L (36-47) % MCV 90.8 (85-98) fl Plt Count 173 (157-399) 10^3/c mm Neut % (Auto) 70.8 % Neut # (Auto) 5.06 (1.8-7.7) 10^3/u L Blood Bank 07/29/24 05:15 Blood Type B Positive Rho(D) Type Rh positive Antibody Screen Negative Vitals: Pulse Rate 75 07/29/24 05:32 Respiratory Effort Spontaneous, Non- Labored 07/29/24 05:05 Respiratory Depth Normal 07/29/24 05:05 Respiratory Patter n Normal 07/29/24 05:05 Blood Pressure 133/82 07/29/24 05:32 Oxygen Delivery Me thod Room Air 07/29/24 05:05 Exam: Pre-Anes Outpt Exam: alert, oriented x 3, clear to auscultation bilaterally and regular rate & rhythm
--- NOTE | 2024-07-29 08:29 | P.OP_ITS ---
Operative Report Date of procedure: July 29, 2024 Pre-op diagnosis: 39.3-week IUP Previous section Scheduled repeat section Post-op diagnosis: Same as the above Rosemarie breech presentation Post-op findings: Body cord x 1 Procedure done: Repeat low-transverse section with delivery of a viable baby girl Surgeon: Ida Blancas DO Anesthesia: Spinal Estimated blood loss (mL): 500 Urine output (mL): 200 Complications: None Condition: stable Disposition: floor Brief History: 28-year-old female at 39.3 weeks gestation admitted to labor and delivery for scheduled repeat section delivery. TIARA 08/02/2024 by LMP and confirmed by first trimester ultrasound. course uncomplicated. Procedure: 28-year-old female G4, P1 at 39.3 weeks gestation admitted to labor and delivery for scheduled repeat section. Risk and benefits of the procedure to include bleeding, infection, injury to pelvic organs and anesthesia reviewed with patient in great detail and consents were signed. Patient was transported to surgical suite placed in the sitting position and anesthesia personnel placed spinal for operative and postop pain. Patient was positioned in the dorsolithotomy position and abdomen prepped and draped after Ludwig catheter placed. Skin testing confirmed adequate anesthesia. A Pfannenstiel incision was made through the previous scar and dissected to the fascia. The fascia was incised and was noted to be very thickened due to the previous scar. The rectus muscles were entered in the midline and the peritoneum opened bluntly. A bladder flap was created with Metzenbaums and pickups, and the bladder displaced inferiorly. A bladder blade was used to protect the bladder. A low transverse uterine incision was made and extended laterally bluntly. The amnion was entered with clear fluid noted. The baby girl was noted to be in a rosemarie breech presentation. An attempt to flex the left leg and the right leg failed. The buttocks was elevated through the incision allowing the legs to then be flexed and delivered left then right. The baby was then delivered to the level of the scapulas, rotating the left arm followed by the right arm delivered with the head being flexed and delivered easily. Body cord was noted and was easily reduced. Spontaneous robust cry was noted. The umbilical cord was clamped and cut and baby placed on the warmer for strategic marketing associate and nursing staff assessment. Arterial and venous pH were drawn and handed off. The placenta was manually removed from the uterus, Pitocin IV solution was started in a bolus manner. The uterus was wiped clean with a moist lap sponge. The uterus was left in the abdomen due to gross adhesions involving the fundal aspect of the uterus. The uterine incision was closed with 0 Vicryl in a running interlocking stitch with good approximation and hemostasis. A second layer using 2-0 Vicryl was used to oversew the first. With good hemostasis being assured the rectus muscle was approximated with 2-0 Vicryl. The fascia was approximated with 0 Vicryl in a running stitch. The subcu fat approximated with 2-0 Vicryl and the skin closed with 4-0 Vicryl in a subcuticular stitch. The incision was cleansed sponge dried and covered with a pressure dressing. Needle and instrument count correct x 2. Mother and are both in stable and satisfactory condition. Weight?7 pounds 10 Apgars 9/9 Related Problem List Diagnoses (1) Delivery by section: (2) 39 weeks gestation of : (3) H/O: : (4) Breech presentation, antepartum:
--- NOTE | 2024-07-29 09:30 | ANE.PACU2 ---
Inpatient post-anesthesia follow up: Airway intact: Yes Vital signs: Temperature 97.7 F Pulse Rate 59 Respiratory Rate 17 Blood Pressure 117/67 Pulse Oximetry 100 Oxygen Delivery Me thod Room Air Oxygen Flow Rate Fraction of Inspir ed Oxygen Hydration adequate: Yes Nausea and vomiting: No Pain level: 1 Mental status: Baseline
[2024-07-29] MEDS: dextrose 5%-lactated ringers 1,000 ML 125 ML IV (10:55)
[2024-07-29] MEDS: HYDROcodone-acetaminophen 5-325 mg Tablet PO ×4 (11:17→23:10)
[2024-07-29] MEDS: ketorolac 30 mg/mL INJ IVP (13:41)
[2024-07-29] MEDS: docusate sodium 100 mg Capsule 200 MG PO (18:22)
[2024-07-29 20:18] LABS: Hematocrit 27.3 % (36-47); Mean Corpuscular HGB Conc 34.1 g/dL (30-55); Mean Corpuscular Hemoglobin 31.7 pg (27-33); Mean Corpuscular Volume 93.2 fl (85-98); Mean Platelet Volume 11.5 fL (7.4-10.4); Platelet Count 174 10^3/cmm (157-399); Red Blood Count 2.93 10^6/uL (3.85-5.65); Red Cell Distribution Width 14.3 % (12.1-15.1); White Blood Count 9.88 10^3/uL (3.29-11.43)
[2024-07-29] MEDS: ibuprofen 800 mg tablet PO (21:45)
[2024-07-30] MEDS: HYDROcodone-acetaminophen 5-325 mg Tablet PO ×5 (04:12→21:32)
[2024-07-30] MEDS: docusate sodium 100 mg Capsule 200 MG PO ×2 (08:16→17:57)
[2024-07-30] MEDS: ibuprofen 800 mg tablet PO ×3 (08:17→20:40)
[2024-07-30] MEDS: ferrous sulfate EC 325 mg Tablet PO ×2 (08:17→17:57)
[2024-07-30] MEDS: PRENATAL VIT NO.130/IRON/FOLIC 1 EACH TABLET PO (08:17)
[2024-07-30] MEDS: simethicone 80 mg Chew PO ×3 (08:19→20:44)
[2024-07-30 10:23] VITALS: BP 128/66; PULSE 105
--- NOTE | 2024-07-30 10:56 | PM.OBGYPN ---
REGISTERED RESPIRATORY TECHNICIAN Subjective Subjective: Interval history: 28-year-old female s/p repeat section on 07/29/2024 with a viable baby girl. Patient is ambulating tolerating regular diet and voiding without difficulties. She denies headache blurred vision chest pain or shortness of breath. Baby has a cleft palate but is breast feeding and having supplementation with a bottle. Postop expectations reviewed to include no heavy lifting pushing or pulling. Patient is encouraged to shower daily keeping incision clean and dry. Patient verbalizes understanding VSS, afebrile Labor: Monitor Mode: Palpation Vitals/I&O/Wt Last Vital Signs Temp 97.9 F 07/29/24 21:47 Pulse 105 H 07/30/24 10:23 Resp 15 07/29/24 21:47 BP 128/66 07/30/24 10:23 Pulse Ox 100 07/29/24 14:15 O2 Del Method Room Air 07/29/24 08:55 07/29/24 07/30/24 07/30/24 22:59 06:59 14:59 Intake Total 2166.667 / 3666.667 Output Total 400 / 1500 300 / 1800 Balance 1766.667 / 2166.667 -300 / 1866.667 Weight last 48 hrs Weight 107.955 kg Physical Exam Back/Pelvis: OTHER: Abdomen?soft, fundus firm well below umbilicus. Incision?clean dry and intact. Lochia light rubra. Extremity: COMMON NORMALS: normal to inspection, no clubbing, cyanosis or edema and no calf tenderness Urinary Catheter Management: Ludwig: Cath Placed During This Visit: yes, but has since been removed by the nurse Reason for Continuing Indwelling Catheter: Decision to DC Catheter Urinary Catheter Date of Insertion: 07/29/24 Urinary Catheter Time of Insertion: 07:15 Date Urinary Catheter Removed: 07/29/24 Time Urinary Catheter Discontinued: 16:15 Data 07/29/24 20:11 A&P Assessment and plan (1) Anemia: (2) H/O: : (3) Delivery by section: (4) Acid reflux: (5) Anxiety and depression: PDMP PDMP Reviewed: Not Reviewed Attestations Medical Necessity Statement*: Patient was admitted to labor and delivery on 07/29/2024 for scheduled elective repeat section Coding Level of Care Code Acute Code for Chg Fwd Diagnoses Anemia D64.9 H/O: Z98.891 Delivery by section Gastroesophageal reflux disease, unspecified whether esophagitis present K21.9 Esophagitis presence: esophagitis presence not specified Anxiety and depression F41.9; F32.A
[2024-07-30 14:49] VITALS: BP 129/62; PULSE 85
[2024-07-30 20:42] VITALS: BP 132/73; PULSE 104; RESP 15; TEMP 36.6; TEMP 36.7
[2024-07-31] MEDS: HYDROcodone-acetaminophen 5-325 mg Tablet PO ×4 (01:52→16:43)
[2024-07-31 03:25] VITALS: BP 123/69; PULSE 70
[2024-07-31] MEDS: PRENATAL VIT NO.130/IRON/FOLIC 1 EACH TABLET PO (08:27)
[2024-07-31] MEDS: docusate sodium 100 mg Capsule 200 MG PO ×2 (08:27→17:58)
[2024-07-31] MEDS: ferrous sulfate EC 325 mg Tablet PO ×2 (08:27→17:58)
[2024-07-31] MEDS: ibuprofen 800 mg tablet PO ×3 (08:27→20:31)
[2024-07-31 10:04] VITALS: BP 133/64; PULSE 125
[2024-07-31 10:06] VITALS: RESP 17; TEMP 36.5
--- NOTE | 2024-07-31 11:05 | P.PN_ITS ---
HISTORIC SITES SUPERVISOR Subjective 2 Subjective: Interval history: 28-year-old female G4, P2 delivered via repeat low-transverse section on 07/29/2024 at 39.3 weeks. Patient is ambulating, voiding and tolerating a regular diet. Patient is still requesting narcotic pain medication every 4 hours for incisional discomfort. Baby girl is requiring close nursing observation with a cleft palate. Postop expectations have been reviewed with the patient to include no strenuous activity, sexual intercourse x 6 weeks. Patient is encouraged to shower daily keeping incision clean and dry. High-fiber diet with increased fluids have been encouraged. Patient verbalizes understanding. VSS, afebrile Abdomen?soft, fundus firm, incision clean dry and intact Extremities?+1 edema, negative Homans' sign. Labor: Monitor Mode: Palpation Vitals/I&O/Wt Last Vital Signs Temp 97.7 F 07/31/24 10:06 Pulse 125 H 07/31/24 10:04 Resp 17 07/31/24 10:06 BP 133/64 07/31/24 10:04 Pulse Ox 100 07/29/24 14:15 O2 Del Method Room Air 07/29/24 08:55 Physical Exam 2 Urinary Catheter Management: Ludwig: Cath Placed During This Visit: yes, but has since been removed by the nurse Reason for Continuing Indwelling Catheter: Decision to DC Catheter Urinary Catheter Date of Insertion: 07/29/24 Urinary Catheter Time of Insertion: 07:15 Date Urinary Catheter Removed: 07/29/24 Time Urinary Catheter Discontinued: 16:15 Data 07/29/24 20:11 A&P Assessment and plan (1) Anemia: (2) Delivery by section: (3) 39 weeks gestation of : (4) H/O: : (5) History of recurrent miscarriages: (6) Anxiety and depression: PDMP PDMP Reviewed: Not Reviewed Attestations 2 Medical Necessity Statement*: Patient was admitted on 07/29/2024 for scheduled repeat section. Coding Level of Care Code Acute Code for Chg Fwd Diagnoses Anemia D64.9 Delivery by section 39 weeks gestation of Z3A.39 H/O: Z98.891 History of recurrent miscarriages N96 Anxiety and depression F41.9; F32.A
[2024-07-31 16:52] VITALS: BP 124/72; PULSE 75
[2024-07-31 17:00] VITALS: RESP 17; TEMP 36.8
[2024-07-31 22:20] VITALS: BP 126/74; PULSE 81
[2024-08-01] MEDS: HYDROcodone-acetaminophen 5-325 mg Tablet PO ×2 (01:22→07:28)
[2024-08-01 05:16] VITALS: BP 152/83; PULSE 81
[2024-08-01] MEDS: docusate sodium 100 mg Capsule 200 MG PO (07:56)
[2024-08-01] MEDS: PRENATAL VIT NO.130/IRON/FOLIC 1 EACH TABLET PO (07:56)
[2024-08-01] MEDS: ferrous sulfate EC 325 mg Tablet PO (07:56)
[2024-08-01] MEDS: ibuprofen 800 mg tablet PO (07:56)
[2024-08-01 09:36] VITALS: BP 139/74; PULSE 76
[2024-08-01 09:41] VITALS: RESP 18
--- NOTE | 2024-08-01 10:46 | PM.OBGYDC ---
Discharge Providers CHEMICAL OPERATIONS AND TRAINING Date of Admission: 07/29/24 05:03 Date of Discharge: 08/01/24 Attending Provider at Admission: Ida Blancas DO Attending Provider at Discharge: Ida Blancas DO Primary Care Provider: Gabe Malcolm MD Diagnoses at Discharge Discharge Diagnosis (1) Anemia: Details from hospital stay: 28-year-old female G4, P2 s/p repeat low-transverse section delivery at 39.3 weeks gestation. Patient's postop course has been uncomplicated. Patient complains of right-sided pelvic pain and low back pain which is not new for her over the last several months. Patient denies headaches, blurred vision, chest pain or shortness of breath. She denies excessive bleeding or passage of large blood clots. Postop expectations have been reviewed with patient in great detail to include no heavy lifting pushing or pulling no sex douching or tampons x 6 weeks. Patient is encouraged to continue ambulation at home to decrease the risk of DVT and pneumonia. Patient is requesting narcotic pain medication for her continued right-sided pelvic pain. I have reviewed with her abuse potential of narcotics and to stick with prescription advice of how to take this medication. I encouraged her to substitute the hydrocodone with ibuprofen and Tylenol. Patient understands. Patient is also encouraged to continue her vitamins with iron, anemia during and with acute blood loss from surgery were reviewed. VSS, afebrile Heart?regular rate and rhythm Lungs?CTA bilateral Abdomen?soft, fundus firm below umbilicus. Incision clean and dry, intact. Lochia?rubra light Extremities?+1 edema, negative Homans' sign. 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 (6) Anxiety and depression: Status: Acute Hospital Course Hospital Course See above summary under discharge diagnosis Information Peripartum Data: Delivery Method: Physical Exam Urinary Catheter Management: Ludwig: Cath Placed During This Visit: yes, but has since been removed by the nurse Reason for Continuing Indwelling Catheter: Decision to DC Catheter Urinary Catheter Date of Insertion: 07/29/24 Urinary Catheter Time of Insertion: 07:15 Date Urinary Catheter Removed: 07/29/24 Time Urinary Catheter Discontinued: 16:15 History History History 4 Term 2 0 Miscarriages/Ectopic 2 Living Children 2 Discharge Data Studies Completed and Pending Laboratory Results WBC 9.88 10^3/uL (3.29-11.43) 07/29/24 20:11 RBC 2.93 10^6/uL (3.85-5.65) L 07/29/24 20:11 Hgb 9.30 g/dL (11.27-16.99) L 07/29/24 20:11 Hct 27.3 % (36-47) L 07/29/24 20:11 MCV 93.2 fl (85-98) 07/29/24 20:11 MCH 31.7 pg (27-33) 07/29/24 20:11 MCHC 34.1 g/dL (30-55) 07/29/24 20:11 RDW 14.3 % (12.1-15.1) 07/29/24 20:11 Plt Count 174 10^3/cmm (157-399) 07/29/24 20:11 MPV 11.5 fL (7.4-10.4) H 07/29/24 20:11 Neut % (Auto) 70.8 % 07/29/24 05:15 Lymph % (Auto) 20.9 % 07/29/24 05:15 Carlton % (Auto) 6.1 % 07/29/24 05:15 Eos % (Auto) 1.5 % 07/29/24 05:15 Baso % (Auto) 0.3 % 07/29/24 05:15 Neut # (Auto) 5.06 10^3/uL (1.8-7.7) 07/29/24 05:15 Lymph # (Auto) 1.5 10^3/uL (0.8-4.8) 07/29/24 05:15 Carlton # (Auto) 0.4 10^3/uL (0.2-0.9) 07/29/24 05:15 Eos # (Auto) 0.1 10^3/uL (0.0-0.8) 07/29/24 05:15 Baso # (Auto) 0.0 10^3/uL (0.0-0.1) 07/29/24 05:15 Nucleated RBC % (auto) 0 % 07/29/24 05:15 Nucleated RBCs # 0.0 /100WBC 07/29/24 05:15 Urine Opiates Screen Negative ng/mL (Negative) 07/29/24 05:03 Ur Barbiturates Screen Negative ng/mL (Negative) 07/29/24 05:03 Ur Phencyclidine Scrn Negative ng/mL (Negative) 07/29/24 05:03 Ur Amphetamines Screen Negative ng/mL (Negative) 07/29/24 05:03 U Benzodiazepines Scrn Negative ng/mL (Negative) 07/29/24 05:03 Urine Cocaine Screen Negative ng/mL (Negative) 07/29/24 05:03 U Marijuana (THC) Screen Negative ng/mL (Negative) 07/29/24 05:03 Blood Type B Positive 07/29/24 05:15 Rho(D) Type Rh positive 07/29/24 05:15 Antibody Screen Negative 07/29/24 05:15 Vitals Last Vital Signs Temp 98.3 F 07/31/24 17:00 Pulse 76 08/01/24 09:36 Resp 18 08/01/24 09:41 BP 139/74 08/01/24 09:36 Pulse Ox 100 07/29/24 14:15 O2 Del Method Room Air 08/01/24 09:41 Results Labs OB ([facility]): Obstetrics US 06/24/24 Blood Type B Positive 07/29/24 Antibody Screen Negative 07/29/24 Hct, (36-47) 27.3 % L 07/29/24 Hgb, (11.27-16.99) 9.30 g/dL L 07/29/24 Rho(D) Type Rh positive 07/29/24 Plt Count, (157-399) 174 10^3/cmm 07/29/24 Hep Bs Antigen, (Nonreactive) Non-reactive 01/10/24 Hepatitis C Antibody, (Nonreactive) Non-reactive 01/10/24 Rubella IgG Antibody, (0.0-10.0) 117.3 IU/mL H 01/10/24 RPR, (Nonreactive) Nonreactive 01/10/24 HIV 1&2 Ab & HIV 1 Ag, (Non-Reactiv) Non-reactive 01/10/24 TSH, (0.27-4.20) 0.41 uIU/mL 01/10/24 C.trachomatis RNA (TMA), (NOT DETECTED) Not detected 01/10/24 N.gonorrhoeae RNA (TMA), (NOT DETECTED) Not detected 01/10/24 T. vaginalis Amp RNA, (NOT DETECTED) Not detected 01/10/24 Chlamydia/GC Comment See note 01/10/24 Glucose 1 Hr 50 gm, (85-140) 103 mg/dL 05/16/24 Uric Acid, (2.4-5.7) 3.7 mg/dL 07/06/24 Ser , Semi-Qnt 01006.00 mIU/mL 12/10/23 HCG, Qual, (Negative) Positive H 11/29/23 Urine Opiates Screen, (Negative) Negative ng/mL 07/29/24 Ur Barbiturates Screen, (Negative) Negative ng/mL 07/29/24 Ur Phencyclidine Scrn, (Negative) Negative ng/mL 07/29/24 Ur Amphetamines Screen, (Negative) Negative ng/mL 07/29/24 U Benzodiazepines Scrn, (Negative) Negative ng/mL 07/29/24 Urine Cocaine Screen, (Negative) Negative ng/mL 07/29/24 U Marijuana (THC) Screen, (Negative) Negative ng/mL 07/29/24 Micro Urine Specimen 07/06/24 Pap Smear Interpret See note A 01/30/24 Discharge Plan Discharge Patient Disposition: Home Condition: Stable Prescriptions: New hydrocodone-acetaminophen 5-325 mg Tablet 1 - 2 tab PO Q6H PRN (Reason: Moderate To Severe Pain) Qty: 10 0RF Continued DHA 200 mg capsule 1 mg PO DAILY Discharge Orders: Discharge Order (Routine); Ordered 08/01/24 Ordered By: Ida Blancas Referrals: Jenna Lott NP [Nurse Practitioner, CHEMICAL OPERATIONS AND TRAINING] - 08/18/24 8:30 am Referral Note: 6 week postop appointment scheduled 09/09/24 @ 10:45 AM Discharge Diet: Regular Discharge Activity: Increase activity as tolerated Patient Instructions: Depression (DC), Opioid Safety (DC), Preeclampsia and Eclampsia After Delivery (GEN), Hemorrhage (DC), OB WHC, OB Discharge Report, OB Food/Drug Interaction Guide, Opioid Safety, OB Home Care, Abnormal Bleeding Activity Restrictions/Additional Instructions: Patient counseled against heavy lifting pushing or pulling. No sexual intercourse x 6 weeks. Patient to shower daily keeping incision clean and dry. Patient encouraged to continue vitamins and iron and if constipation occurs to take [id number] stool softeners. Assessment: 1. S/p repeat section 2. Asymptomatic anemia Plan of Treatment: DC to home today. Patient to follow-up in women's clinic in 2 weeks for postop evaluation. Discharge Attestations CHEMICAL OPERATIONS AND TRAINING Time Spent in Discharge Care*: less than 30 min Coding Level of Care Code Acute Code for Chg Fwd Diagnoses Anemia D64.9 Delivery by section 39 weeks gestation of Z3A.39 H/O: Z98.891 History of recurrent miscarriages N96 Anxiety and depression F41.9; F32.A
[2024-08-01 11:35] VITALS: BP 125/82; PULSE 89; RESP 18; TEMP 37.1; O2SAT 98
== END 2024-08-01 11:35 | disposition home or self-care (01) | DRG 788 ==
PROVIDERS: Admitting Provider Obstetrics & Gynecology; PCP Obstetrics & Gynecology; Visit Provider Obstetrics & Gynecology
PROC: 10D00Z1 Extraction of Products of Conception, Low, Open Approach (ICD-10-PCS; CPT 59514; principal; 2024-07-29 07:00)
DX: O32.1XX0 Maternal care for breech presentation, not applicable or unspecified (principal); Z3A.39 39 weeks gestation of pregnancy; Z37.0 Single live birth; O34.211 Maternal care for low transverse scar from previous cesarean delivery; N85.8 Other specified noninflammatory disorders of uterus; J30.2 Other seasonal allergic rhinitis; K52.9 Noninfective gastroenteritis and colitis, unspecified; N96 Recurrent pregnancy loss; O99.02 Anemia complicating childbirth; D64.9 Anemia, unspecified; O99.345 Other mental disorders complicating the puerperium; F41.9 Anxiety disorder, unspecified; F53.0 Postpartum depression; O90.89 Other complications of the puerperium, not elsewhere classified; O99.62 Diseases of the digestive system complicating childbirth; K21.9 Gastro-esophageal reflux disease without esophagitis; M54.50 Low back pain, unspecified; G89.29 Other chronic pain; M25.551 Pain in right hip
CPT/HCPCS: 36415; 51702; 59409; 80306; 85025; 85027; 86850; 86900; 96374; 96376; J1885; J2274; J2371; J2405; J2765; J3010; J3490; J7030; J7121; J9999

== ENCOUNTER 2024-08-02 10:32 | Emergency (ER) | payer BC, MEDICAID, SELFPAY ==
[2024-08-02 10:43] VITALS: BP 145/79; PULSE 115; RESP 18; TEMP 37.9; O2SAT 98
--- NOTE | 2024-08-02 10:59 | XRR_ITS ---
PROCEDURE INFORMATION: Exam: XR Chest Exam date and time: 08/02/2024 11:39 AM Age: 28 years old Clinical indication: Cough; Fever/chills post TECHNIQUE: Imaging protocol: Radiologic exam of the chest. Views: 2 views. COMPARISON: CT chest oskarpel w/*[id number] 01/26/2023 4:55 AM FINDINGS: Lungs: Unremarkable. No consolidation. Pleural spaces: Unremarkable. No pleural effusion. No pneumothorax. Heart/Mediastinum: Borderline cardiomegaly. Bones/joints: Remote left posterior rib fractures. XR/XR chest 2V* [id number] IMPRESSION: No acute cardiopulmonary process.
--- NOTE | 2024-08-02 11:02 | ED_ITS ---
HPI - General Adult 2 General: Chief complaint: General Medical Stated complaint: fever, shaking - c section 07/29 Time Seen by Provider: 08/02/24 10:35 History of Present Illness: Chief complaint is fever and bodyaches and chills. Patient states that she had a on Sunday that was scheduled without complication. She has not started breast-feeding and has not been able to pump. She states that she woke up during the night with chills fever of 100.7 and hurting all over. She states just everything is achy. She has a dull headache a cough, her lower stomach still hurts but she states she only had 10 hydrocodone so she has been trying not to take them. She states the right side of her wound feels irritated. She also feels like she has some discomfort with urination. Related Data Home Medications ?Medication ?Instructions ?Recorded ?Confirmed docosahexaenoic acid 200 mg 1 mg PO DAILY 01/10/24 capsule ( DHA) acetaminophen 325 mg tablet 650 mg PO QID PRN Fever Or Pain 08/02/24 08/02/24 (Tylenol) docusate sodium 100 mg capsule 100 mg PO BID PRN Const ipation 08/02/24 08/02/24 (Stool Softener) ibuprofen 200 mg tablet (Advil) 200 mg PO Q6H PRN Feve r Or Pain 08/02/24 08/02/24 Previous Rx's ?Medication ?Instructions ?Recorded hydrocodone 5 mg-acetaminophen 325 1 - 2 tab PO Q6H VT N Moderate To 08/01/24 mg tablet Severe Pain #10 tabs ampicillin 500 mg capsule 500 mg PO TID 7 days #21 cap s 08/02/24 Allergies Allergy/AdvReac Type Severity Reaction Status Date / Time No Known Allergies Allergy Verified 07/29/24 05:21 PFS ED 2 PFSH: Medical History Depression Surgical History H/O: Family History Mother Hyperlipidemia Father Hypertension Diabetes Denies family history of Colon cancer Ovarian cancer Heart disease Breast cancer Uterine cancer Thyroid disease Stroke Social History Smoking and tobacco/nicotine status: never used tobacco/nicotine Alcohol intake: never Physical Exam 2 Narrative: EXAM NARRATIVE: Patient sitting up tearful and appears uncomfortable and anxious. She has nasal congestion which she attributes to crying. Pupils are equal and reactive and she has normal conjunctiva. He has moist mucous membranes. Neck is supple. Heart regular rhythm with tachycardia. Lung sounds are clear. She is coughing intermittently. Her abdomen is soft but tender to light touch and she does not tolerate even approach to the abdominal exam. She has some mild erythema on the right margins of the wound but no drainage in the wound itself is well-appearing otherwise. Breasts were examined with patient's consent with in the room and she has some faint increased pinkness along the inferior aspect of the left breast but no tenderness. Patient moves her back freely. Extremities are warm well-perfused. No calf tenderness or pitting edema Course 2 Vital Signs: Vital signs: Vital Signs Temperature 100.3 F H 08/02/24 10:43 Pulse Rate 87 08/02/24 12:31 Respiratory Rate 18 08/02/24 10:43 Blood Pressure 134/78 08/02/24 12:31 Pulse Oximetry 99 08/02/24 12:31 Oxygen Delivery Me thod Room Air 08/02/24 12:31 MDM - General Adult Medical Decision Making Patient presents with low-grade fever postop day 4 from . Patient is tearful and has complaint of achy all over and hurting all over. She was tender to light touch with just auscultating with my stethoscope and she has anxiety and concern of pain with even near approach of her abdomen all limiting her exam and evaluation. Will treat her pain and reassess to get a better idea of her pain level. Differential would include pneumonia as she has a cough and she states she is coughing up yellow sputum. She states the cough started prior to her . Patient sounds very congested but she states is from crying prior to arrival. Early mastitis considered although the patient states both her breast feel painful and engorged. No convincing findings of mastitis on exam. Patient may have early mild wound infection on the right side of the surgical scar but unlikely to explain the fever. She has no discharge. Endometritis, pneumonia, UTI, broad differential. I ordered 1 L normal saline IV fluid bolus, CBC CMP urinalysis and chest x-ray and COVID and influenza and RSV. I ordered hydrocodone 5 mg p.o. for pain with patient request and 600 mg ibuprofen p.o. Patient heart rate is much improved after IV fluid bolus and Tylenol and ibuprofen. Patient's hemoglobin is low at 8 however she states she is not having any further bleeding of significance. Her white count is normal. Platelet count is within normal limits. Patient's creatinine is 0.6. Chest x- ray is negative for acute process per radiology. Patient's repeat blood pressure is improved. I do not think patient has eclampsia or preeclampsia. Patient's heart rate is improved. Urinalysis showed blood and trace protein. I called and consulted with Dr. Blancas who knows the patient, and discussed patient's presenting symptoms exam and history and concerns and labs. She recommended outpatient management on ampicillin 500 mg 3 times daily with return and follow-up instructions. Educated patient at length regarding limits of ED evaluation broad differential with her symptoms. Advised potential for early endometritis among others. Advised her low hemoglobin and signs of worsening or excessive blood loss to watch and return for. Advise close follow-up and return instructions. Patient given a dose of ampicillin and clindamycin here. Will send home on ampicillin and advised to return if any progressive or worsening symptoms or concerning abdominal pain or breast pain or redness. Patient agrees with plan after informed discussion. Lab Data 08/02/24 11:11 08/02/24 11:11 Radiology Impressions Chest X-Ray 08/02/24 10:59 IMPRESSION: No acute cardiopulmonary process. Laboratory Results WBC 7.52 10^3/uL (3.29-11.43) 08/02/24 11:11 RBC 2.49 10^6/uL (3.85-5.65) L 08/02/24 11:11 Hgb 8.00 g/dL (11.27-16.99) L 08/02/24 11:11 Hct 23.6 % (36-47) L 08/02/24 11:11 MCV 94.8 fl (85-98) 08/02/24 11:11 MCH 32.1 pg (27-33) 08/02/24 11:11 MCHC 33.9 g/dL (30-55) 08/02/24 11:11 RDW 14.3 % (12.1-15.1) 08/02/24 11:11 Plt Count 187 10^3/cmm (157-399) 08/02/24 11:11 MPV 11.3 fL (7.4-10.4) H 08/02/24 11:11 Neut % (Auto) 86.5 % 08/02/24 11:11 Lymph % (Auto) 8.1 % 08/02/24 11:11 Barnes % (Auto) 2.8 % 08/02/24 11:11 Eos % (Auto) 2.0 % 08/02/24 11:11 Baso % (Auto) 0.1 % 08/02/24 11:11 Neut # (Auto) 6.50 10^3/uL (1.8-7.7) 08/02/24 11:11 Lymph # (Auto) 0.6 10^3/uL (0.8-4.8) L 08/02/24 11:11 Barnes # (Auto) 0.2 10^3/uL (0.2-0.9) 08/02/24 11:11 Eos # (Auto) 0.2 10^3/uL (0.0-0.8) 08/02/24 11:11 Baso # (Auto) 0.0 10^3/uL (0.0-0.1) 08/02/24 11:11 Nucleated RBC % (auto) 0 % 08/02/24 11:11 Nucleated RBCs # 0.0 /100WBC 08/02/24 11:11 Sodium 136 mmol/L (136-145) 08/02/24 11:11 Potassium 3.6 mmol/L (3.5-5.1) 08/02/24 11:11 Chloride 102 mmol/L (98-107) 08/02/24 11:11 Carbon Dioxide 24 mmol/L (22-29) 08/02/24 11:11 Anion Gap 13.6 (5-19) 08/02/24 11:11 BUN 7 mg/dL (6-20) 08/02/24 11:11 Creatinine 0.6 mg/dL (0.5-0.9) 08/02/24 11:11 GFR Calculation 119.0 mL/min (90-130) 08/02/24 11:11 Glucose 86 mg/dL (65-115) 08/02/24 11:11 Calculated Osmolality 279 mOsm/kg (285-295) L 08/02/24 11:11 Calcium 8.8 mg/dL (8.5-10.5) 08/02/24 11:11 Total Bilirubin 1.2 mg/dL (0.15-1.2) 08/02/24 11:11 AST 28 U/L (0-32) 08/02/24 11:11 ALT 27 U/L (0-33) 08/02/24 11:11 Alkaline Phosphatase 144 U/L (35-105) H 08/02/24 11:11 Total Protein 6.8 g/dL (6.6-8.7) 08/02/24 11:11 Albumin 3.2 g/dL (3.5-5.2) L 08/02/24 11:11 Globulin 3.6 g/dL (1.3-4.6) 08/02/24 11:11 Urine Color Yellow (Yellow) 08/02/24 12:24 Urine Appearance Clear (CLEAR) 08/02/24 12:24 Urine pH 8.0 (5-7) A 08/02/24 12:24 Ur Specific Dawson 1.013 (1.005-1.030) 08/02/24 12:24 Urine Protein Trace (Negative) A 08/02/24 12:24 Urine Glucose (UA) Negative (Normal) 08/02/24 12:24 Urine Ketones Negative (Negative) 08/02/24 12:24 Urine Blood 3+ (Negative) A 08/02/24 12:24 Urine Nitrate Negative (Negative) 08/02/24 12:24 Urine Bilirubin Negative (Negative) 08/02/24 12:24 Urine Urobilinogen 1.0 mg/dL (Negative) 08/02/24 12:24 Ur Leukocyte Esterase Trace (Negative) A 08/02/24 12:24 Urine RBC 51-100 /hpf (0-2) H 08/02/24 12:24 Urine WBC 0-5 /hpf (0-5) 08/02/24 12:24 Ur Squamous Epith Cells 0-5 /hpf (0-5) 08/02/24 12:24 Amorphous Sediment Not Reportable 08/02/24 12:24 Urine Bacteria None seen /hpf (NONE) 08/02/24 12:24 Hyaline Casts 0-4 /lpf H 08/02/24 12:24 Influenza A (PCR) Negative (Negative) 08/02/24 12:00 Influenza Type B (PCR) Negative (Negative) 08/02/24 12:00 RSV (PCR) Negative (Negative) 08/02/24 12:00 SARS-CoV-2 (PCR) Negative (Negative) 08/02/24 12:00 All radiology interpretation(s) finalized by discharge Discharge Plan Discharge Patient Disposition: Home Clinical Impression: Fever, Cough Condition: Stable Prescriptions: New ampicillin 500 mg capsule 500 mg PO TID 7 Days Qty: 21 0RF No Action DHA 200 mg capsule 1 mg PO DAILY hydrocodone-acetaminophen 5-325 mg Tablet 1 - 2 tab PO Q6H PRN (Reason: Moderate To Severe Pain) Qty: 10 0RF acetaminophen [Tylenol] 325 mg Tablet 650 mg PO QID PRN (Reason: Fever Or Pain) ibuprofen [Advil] 200 mg Tablet 200 mg PO Q6H PRN (Reason: Fever Or Pain) docusate sodium [Stool Softener] 100 mg Capsule 100 mg PO BID PRN (Reason: Constipation) Discharge Orders: Discharge ED (Routine); Ordered 08/02/24 Ordered By: Kenney Giron Referrals: Gabe Malcolm MD [Primary Care Provider, ORDER BUILDER] Patient Instructions: Opioid Safety, Pain Management Activity Restrictions/Additional Instructions: Follow-up with Dr. Blancas this week. Call on Sunday for appointment. Please come back if concerning abdominal pain or pelvic pain, concerning bleeding, lightheadedness or dizziness, persistent fever, difficulty breathing, concerning headache, vomiting, increased weakness, getting worse instead of better, any concerns Print Language: Swedish Coding Level of Care Code ED Artist Woodblock for Immanuel Allan
[2024-08-02] MEDS: ondansetron 4 MG Tablet PO (11:05)
[2024-08-02] MEDS: HYDROcodone-acetaminophen 5-325 mg Tablet 1 TAB PO (11:05)
[2024-08-02] MEDS: ibuprofen 600 mg Tablet PO (11:05)
[2024-08-02] MEDS: sodium chloride 0.9% 1,000 ML 999 ML IV ×2 (11:13→12:35)
[2024-08-02 11:32] LABS: Basophils % 0.1 %; Eosinophils # 0.2 10^3/uL (0.0-0.8); Hematocrit 23.6 % (36-47); Lymphocytes # 0.6 10^3/uL (0.8-4.8); Lymphocytes % 8.1 %; Mean Corpuscular HGB Conc 33.9 g/dL (30-55); Mean Corpuscular Hemoglobin 32.1 pg (27-33); Mean Corpuscular Volume 94.8 fl (85-98); Mean Platelet Volume 11.3 fL (7.4-10.4); Monocytes # 0.2 10^3/uL (0.2-0.9); Monocytes % 2.8 %; Neutrophils % 86.5 %; Nucleated Red Blood Cells % 0 %; Platelet Count 187 10^3/cmm (157-399); Red Blood Count 2.49 10^6/uL (3.85-5.65); Red Cell Distribution Width 14.3 % (12.1-15.1); White Blood Count 7.52 10^3/uL (3.29-11.43)
[2024-08-02 11:46] VITALS: BP 133/72; PULSE 96; O2SAT 99
[2024-08-02 11:52] LABS: Alanine Aminotransferase 27 U/L (0-33); Albumin Level 3.2 g/dL (3.5-5.2); Alkaline Phosphatase 144 U/L (35-105); Anion Gap 13.6 (5-19); Aspartate Amino Transferase 28 U/L (0-32); Blood Urea Nitrogen 7 mg/dL (6-20); Calcium 8.8 mg/dL (8.5-10.5); Carbon Dioxide 24 mmol/L (22-29); Chloride 102 mmol/L (98-107); Globulin 3.6 g/dL (1.3-4.6); Glucose 86 mg/dL (65-115); Osmolality Calculated 279 mOsm/kg (285-295); Potassium 3.6 mmol/L (3.5-5.1); Sodium 136 mmol/L (136-145); Total Bilirubin 1.2 mg/dL (0.15-1.2); Total Protein 6.8 g/dL (6.6-8.7)
[2024-08-02 12:31] VITALS: BP 134/78; PULSE 87; O2SAT 99
[2024-08-02 12:35] LABS: Bilirubin Urine Negative (Negative); Blood Urine 3+ (Negative); Glucose Urine UA Negative (Normal); Ketones Urine Negative (Negative); Leukocyte Esterase Urine Trace (Negative); Nitrate Urine Negative (Negative); Protein Urine Trace (Negative); Specific Gravity, Urine 1.013 (1.005-1.030); Urine Appearance Clear (CLEAR); Urine Color Yellow (Yellow)
[2024-08-02 12:40] LABS: Bacteria Urine None Seen /hpf; Hyaline Casts Urine 0-4 /lpf; RBC Urine 51-100 /hpf (0-2); Squamous Epithelial Cell Urine 0-5 /hpf (0-5); WBC Urine 0-5 /hpf (0-5)
[2024-08-02 12:48] LABS: Influenza A NEGATIVE (Negative); Influenza B NEGATIVE (Negative); Respiratory Syncytial Virus Ce NEGATIVE (Negative); SARS-CoV-2 PCR NEGATIVE (Negative)
[2024-08-02 12:53] LABS: Add Urine Culture? Yes
[2024-08-02] MEDS: ampicillin 2,000 MG in sodium chloride 0.9% (plus) 50 ML 100 MG IV (14:08)
[2024-08-02] MEDS: clindamycin 900 MG/50 ML PREMIX 100 MG IV (14:40)
[2024-08-02 15:20] VITALS: BP 145/84; PULSE 90; O2SAT 97
== END 2024-08-02 15:22 | disposition home or self-care (01) ==
PROVIDERS: Emergency Provider Emergency Medicine; PCP Obstetrics & Gynecology
DX: R50.9 Fever, unspecified (principal); R05.9 Cough, unspecified; Z11.52 Encounter for screening for COVID-19
CPT/HCPCS: 12345; 36415; 71046; 80053; 81001; 85025; 87040; 87086; 87637; 96365; 96367; 99284; J0290; J3490; J7030; J9999; Q0162

== ENCOUNTER 2024-08-05 14:20 | Observation (INO) | payer BC, MEDICAID, SELFPAY ==
[2024-08-05] VITALS (45 sets, daily range): BP systolic 122–149; BP diastolic 61–85; PULSE 48–82; RESP 16–28; TEMP 36.7–37.5; O2SAT 95–99; BMI 37.8
--- NOTE | 2024-08-05 15:31 | ECG_ITS ---
[facility] Test Date: 2024-08-05 Pat Name: Stacy Gupta Department: Room: Gender: Female Type Photography Supervisor: : 1995 Requested By: Beckie Lopez Order Number: [id number] Reading MD: ALEXI SANTILLAN Measurements Intervals [place] Rate: 69 P: 14 TX: 166 QRS: 56 QRSD: 80 T: 39 QT: 360 QTc: 387 Interpretive Statements SINUS RHYTHM WITH MARKED SINUS ARRHYTHMIA No previous ECG available for comparison Electronically Signed On 08-06-2024 22:48:54 CDT by ALEXI SANTILLAN [email or web address]
--- NOTE | 2024-08-05 15:34 | XRR_ITS ---
PROCEDURE INFORMATION: Exam: XR Chest Exam date and time: 08/05/2024 3:36 PM Age: 28 years old Clinical indication: Shortness of breath TECHNIQUE: Imaging protocol: Radiologic exam of the chest. Views: 1 view. COMPARISON: CR (CHEST, ) 08/02/2024 11:39 AM FINDINGS: Lungs: Mild ill-defined patchy bibasilar opacities appear more conspicuous than prior. Pleural spaces: Unremarkable. No pleural effusion. No pneumothorax. Heart/Mediastinum: Unremarkable. No cardiomegaly. Bones/joints: Remote left posterior rib fractures. XR/XR chest 1V portable [id number] IMPRESSION: Mild patchy bibasilar opacities could represent infiltrate in the correct clinical setting.
--- NOTE | 2024-08-05 15:45 | W.ED.GENADLT ---
HPI - General Adult General: Chief complaint: General Medical Stated complaint: c section on 07/29, SOB, WARREN, Fever, high bp Time Seen by Provider: 08/05/24 15:22 History of Present Illness: 28-year-old female who recently delivered a baby who presents emergency room with multiple complaints. She has been having fevers and sweats. Headaches. Shortness of breath. She had been seen in the emergency room and workup was negative at the time. However she spoke with obstetrics today and they told her to come to the emergency room for evaluation. She reports intermittent ankle swelling and edema. Related Data Home Medications ?Medication ?Instructions ?Recorded ?Confirmed acetaminophen 325 mg tablet 650 mg PO QID PRN Fever Or Pain 08/02/24 08/05/24 (Tylenol) docusate sodium 100 mg capsule 100 mg PO BID PRN Constipation 08/02/24 08/05/24 (Stool Softener) ibuprofen 200 mg tablet (Advil) 200 mg PO Q6H PRN Fever Or Pain 08/02/24 08/05/24 PNV 153-FA 400 mcg-om3 35 mg-dha 1 tab PO DAILY 08/05/24 08/05/24 25 mg-epa 5 mg-fish oil chew tablet ( Gummies) ferrous sulfate 27 mg iron tablet 27 mg PO DAILY 08/05/24 08/05/24 Previous Rx's ?Medication ?Instructions ?Recorded ampicillin 500 mg capsule 500 mg PO TID 7 days #21 caps 08/02/24 hydrocodone 5 mg-acetaminophen 325 1 - 2 tab PO Q6H PRN Moderate To 08/05/24 mg tablet Severe Pain 7 days #30 tabs Allergies Allergy/AdvReac Type Severity Reaction Status Date / Time No Known Allergies Allergy Verified 08/05/24 14:32 Review of Systems Narrative: Constitutional symptoms: Negative except as documented in HPI. Skin symptoms: Negative except as documented in HPI. Eye symptoms: Negative except as documented in HPI. ENMT symptoms: Negative except as documented in HPI. Respiratory symptoms: Negative except as documented in HPI. Cardiovascular symptoms: Negative except as documented in HPI. Gastrointestinal symptoms: Negative except as documented in HPI. Genitourinary symptoms: Negative except as documented in HPI. Musculoskeletal symptoms: Negative except as documented in HPI. Neurologic symptoms: Negative except as documented in HPI. Psychiatric symptoms: Negative except as documented in HPI. Endocrine symptoms: Negative except as documented in HPI. PFSH ED PFSH: Medical History Depression Surgical History H/O: Family History Mother Hyperlipidemia Father Hypertension Diabetes Denies family history of Colon cancer Ovarian cancer Heart disease Breast cancer Uterine cancer Thyroid disease Stroke Social History Smoking and tobacco/nicotine status: never used tobacco/nicotine Alcohol intake: never Physical Exam Narrative: EXAM NARRATIVE: General: Alert, no acute distress. Skin: Warm, dry. Pale Head: Normocephalic, atraumatic. Neck: Supple, trachea midline. Eye: Extraocular movements are intact. Ears, nose, mouth and throat: mucosa moist. Cardiovascular: Regular, Normal peripheral perfusion. Respiratory: Lungs are clear to auscultation, respirations are non-labored, breath sounds are equal, Symmetrical chest wall expansion. Gastrointestinal: Soft, mild tenderness of the central lower abdomen, Non distended Musculoskeletal: Normal ROM, no deformity. Neurological: Alert and oriented, No focal neurological deficit observed. Psychiatric: Cooperative, appropriate mood & affect. Course Vital Signs: Vital signs: Vital Signs Temperature 99.5 F 08/05/24 14:24 Pulse Rate 65 08/05/24 20:16 Respiratory Rate 19 H 08/05/24 20:16 Blood Pressure 132/67 08/05/24 20:16 Pulse Oximetry 95 08/05/24 19:50 Oxygen Delivery Me thod Room Air 08/05/24 19:31 MDM - General Adult Medical Decision Making Medical decision making: Differential diagnosis including but not limited to and based on the above HPI, review of systems and physical exam: Orders placed to evaluate differential diagnosis based on the above differential, HPI and physical exam: Concern for worsening anemia and/or intra-abdominal bleeding. Possible intra-abdominal infection. Also have concern for DVT or PE or heart failure given her lower extremity swelling and shortness of breath. Pneumonia as she has had a cough. EKG: Time 1546. Rate 69. Normal sinus rhythm, No ST-T changes, no ectopy, normal IL & QRS intervals, This was reviewed and interpreted by myself the ER physician at 1550. Lab Review: Laboratory results were reviewed and interpreted by myself the emergency room physician. No leukocytosis. Worsening anemia with hemoglobin of 7.1. No renal failure. Urinalysis is negative for infection. Flu COVID and RSV are negative. CT of the chest abdomen pelvis: PE protocol chest. Patchy infiltrate both lung bases suspicious for developing pneumonia. Large pelvic hematoma. See full details by radiology. This was reviewed and interpreted by myself the emergency room physician. I also reviewed the radiology report. I reviewed the patient's medical record. Reexamination: Patient remained stable. No increased work of breathing. No altered mental status. No focal motor deficits. Continued mild abdominal pain. No oxygen requirements. Consultation: I spoke with Dr. Malcolm who is on-call for obstetrics. He agrees to admission. I initially talked with the hospitalist but she prefers admission to surgical service. He agrees. He can consult if he feels necessary. Assessment and plan: Anemia Pelvic hematoma Pneumonia ?IV Zosyn in the emergency room. 2 units PRBCs ordered. -I discussed the patient with the hospitalist on-call who is admitting the patient. - Discussed findings and plan with patient. Answered any questions. - All laboratory values were reviewed and interpreted personally by myself, the ER physician - All imaging was reviewed and interpreted personally by myself, the ER physician. - Evaluation and treatment of this problem were appropriate in the emergency setting Lab Data 08/05/24 16:17 08/05/24 16:17 Radiology Impressions Chest X-Ray 08/05/24 15:34 IMPRESSION: Mild patchy bibasilar opacities could represent infiltrate in the correct clinical setting. Chest/Abdomen/Pelvis CT 08/05/24 17:31 IMPRESSION: Faint patchy infiltrate involving both lung bases suspicious for developing pneumonia IMPRESSION: 1. Large pelvic hematoma as detailed above. No active contrast extravasation noted. 2. Stable splenomegaly Laboratory Results WBC 9.28 10^3/uL (3.29-11.43) 08/05/24 16:17 RBC 2.31 10^6/uL (3.85-5.65) L 08/05/24 16:17 Hgb 7.10 g/dL (11.27-16.99) L 08/05/24 16:17 Hct 22.9 % (36-47) L 08/05/24 16:17 MCV 99.1 fl (85-98) H 08/05/24 16:17 MCH 30.7 pg (27-33) 08/05/24 16:17 MCHC 31.0 g/dL (30-55) 08/05/24 16:17 RDW 14.2 % (12.1-15.1) 08/05/24 16:17 Plt Count 252 10^3/cmm (157-399) 08/05/24 16:17 MPV 10.8 fL (7.4-10.4) H 08/05/24 16:17 Neut % (Auto) 83.9 % 08/05/24 16:17 Lymph % (Auto) 9.2 % 08/05/24 16:17 [place] % (Auto) 4.1 % 08/05/24 16:17 Eos % (Auto) 1.7 % 08/05/24 16:17 Baso % (Auto) 0.3 % 08/05/24 16:17 Neut # (Auto) 7.79 10^3/uL (1.8-7.7) H 08/05/24 16:17 Lymph # (Auto) 0.9 10^3/uL (0.8-4.8) 08/05/24 16:17 [place] # (Auto) 0.4 10^3/uL (0.2-0.9) 08/05/24 16:17 Eos # (Auto) 0.2 10^3/uL (0.0-0.8) 08/05/24 16:17 Baso # (Auto) 0.0 10^3/uL (0.0-0.1) 08/05/24 16:17 Nucleated RBC % (auto) 0 % 08/05/24 16:17 Nucleated RBCs # 0.0 /100WBC 08/05/24 16:17 PT 13.60 SECONDS (12.1-14.9) 08/05/24 16:17 INR 0.97 (0.8-1.2) 08/05/24 16:17 APTT 30.6 SECONDS (23.9-36.7) 08/05/24 16:17 Sodium 139 mmol/L (136-145) 08/05/24 16:17 Potassium 3.8 mmol/L (3.5-5.1) 08/05/24 16:17 Chloride 106 mmol/L (98-107) 08/05/24 16:17 Carbon Dioxide 20 mmol/L (22-29) L 08/05/24 16:17 Anion Gap 16.8 (5-19) 08/05/24 16:17 BUN 9 mg/dL (6-20) 08/05/24 16:17 Creatinine 0.5 mg/dL (0.5-0.9) 08/05/24 16:17 GFR Calculation 146.9 mL/min (90-130) H 08/05/24 16:17 Glucose 86 mg/dL (65-115) 08/05/24 16:17 Calculated Osmolality 286 mOsm/kg (285-295) 08/05/24 16:17 Lactic Acid 0.8 mmol/L (0.5-2.2) 08/05/24 16:17 Calcium 8.5 mg/dL (8.5-10.5) 08/05/24 16:17 Total Bilirubin 1.2 mg/dL (0.15-1.2) 08/05/24 16:17 AST 13 U/L (0-32) 08/05/24 16:17 ALT 17 U/L (0-33) 08/05/24 16:17 Alkaline Phosphatase 126 U/L (35-105) H 08/05/24 16:17 Troponin T Baseline < 6 ng/L (0-10) 08/05/24 16:17 Troponin T 120 Minute < 6.0 ng/L (0-10) 08/05/24 18:30 Delta Troponin T 0 ABS# (0-10) 08/05/24 18:30 C-Reactive Protein 119.3 mg/L (0.0-4.9) H 08/05/24 16:17 NT-Pro-B Natriuret Pep 363 pg/mL (0-125) H 08/05/24 16:17 Total Protein 6.3 g/dL (6.6-8.7) L 08/05/24 16:17 Albumin 3.1 g/dL (3.5-5.2) L 08/05/24 16:17 Globulin 3.2 g/dL (1.3-4.6) 08/05/24 16:17 Urine Color Dark yellow (Yellow) A 08/05/24 16:16 Urine Appearance Clear (CLEAR) 08/05/24 16:16 Urine pH 8.0 (5-7) A 08/05/24 16:16 Ur Specific [place] 1.027 (1.005-1.030) 08/05/24 16:16 Urine Protein 1+ (Negative) A 08/05/24 16:16 Urine Glucose (UA) Negative (Normal) 08/05/24 16:16 Urine Ketones Trace (Negative) 08/05/24 16:16 Urine Blood 3+ (Negative) A 08/05/24 16:16 Urine Nitrate Negative (Negative) 08/05/24 16:16 Urine Bilirubin Negative (Negative) 08/05/24 16:16 Urine Urobilinogen 1.0 mg/dL (Negative) 08/05/24 16:16 Ur Leukocyte Esterase Trace (Negative) A 08/05/24 16:16 Urine RBC 11-20 /hpf (0-2) H 08/05/24 16:16 Urine WBC 6-10 /hpf (0-5) 08/05/24 16:16 Ur Squamous Epith Cells 0-5 /hpf (0-5) 08/05/24 16:16 Amorphous Sediment Not Reportable 08/05/24 16:16 Urine Bacteria None seen /hpf (NONE) 08/05/24 16:16 Hyaline Casts 0-4 /lpf H 08/05/24 16:16 Influenza A (PCR) Negative (Negative) 08/05/24 15:47 Influenza Type B (PCR) Negative (Negative) 08/05/24 15:47 RSV (PCR) Negative (Negative) 08/05/24 15:47 SARS-CoV-2 (PCR) Negative (Negative) 08/05/24 15:47 Blood Type B Positive 08/05/24 18:30 Rho(D) Type Rh positive 08/05/24 18:30 Antibody Screen Negative 08/05/24 18:30 Crossmatch See Detail 08/05/24 18:30 All radiology interpretation(s) finalized by discharge Discharge Plan Discharge Patient Disposition: Admitted As Inpatient Clinical Impression: Anemia, Postoperative hematoma, Pneumonia, Fever Condition: Stable Coding Level of Care Code ED Erp Implementation Consultant for Immanuel Allan
[2024-08-05 16:42] LABS: Basophils % 0.3 %; Eosinophils # 0.2 10^3/uL (0.0-0.8); Eosinophils % 1.7 %; Hematocrit 22.9 % (36-47); Lymphocytes # 0.9 10^3/uL (0.8-4.8); Lymphocytes % 9.2 %; Mean Corpuscular Hemoglobin 30.7 pg (27-33); Mean Corpuscular Volume 99.1 fl (85-98); Mean Platelet Volume 10.8 fL (7.4-10.4); Monocytes # 0.4 10^3/uL (0.2-0.9); Monocytes % 4.1 %; Neutrophils # 7.79 10^3/uL (1.8-7.7); Neutrophils % 83.9 %; Nucleated Red Blood Cells % 0 %; Platelet Count 252 10^3/cmm (157-399); Red Blood Count 2.31 10^6/uL (3.85-5.65); Red Cell Distribution Width 14.2 % (12.1-15.1); White Blood Count 9.28 10^3/uL (3.29-11.43)
[2024-08-05 17:03] LABS: Bilirubin Urine Negative (Negative); Blood Urine 3+ (Negative); Glucose Urine UA Negative (Normal); Ketones Urine Trace (Negative); Leukocyte Esterase Urine Trace (Negative); Nitrate Urine Negative (Negative); Protein Urine 1+ (Negative); Specific Gravity, Urine 1.027 (1.005-1.030); Urine Appearance Clear (CLEAR); Urine Color Dark Yellow (Yellow)
[2024-08-05 17:09] LABS: Lactic Sepsis W/Reflex 0.8 mmol/L (0.5-2.2)
[2024-08-05 17:09] LABS: Bacteria Urine None Seen /hpf; Hyaline Casts Urine 0-4 /lpf; Squamous Epithelial Cell Urine 0-5 /hpf (0-5)
[2024-08-05 17:18] LABS: Alanine Aminotransferase 17 U/L (0-33); Albumin Level 3.1 g/dL (3.5-5.2); Alkaline Phosphatase 126 U/L (35-105); Anion Gap 16.8 (5-19); Aspartate Amino Transferase 13 U/L (0-32); Blood Urea Nitrogen 9 mg/dL (6-20); C Reactive Protein 119.3 mg/L (0.0-4.9); Calcium 8.5 mg/dL (8.5-10.5); Carbon Dioxide 20 mmol/L (22-29); Chloride 106 mmol/L (98-107); Globulin 3.2 g/dL (1.3-4.6); Glomerular Filtration Rate 146.9 mL/min (90-130); Glucose 86 mg/dL (65-115); NT Pro B Type Natriuretic Pept 363 pg/mL (0-125); Osmolality Calculated 286 mOsm/kg (285-295); Potassium 3.8 mmol/L (3.5-5.1); Sodium 139 mmol/L (136-145); Total Bilirubin 1.2 mg/dL (0.15-1.2); Total Protein 6.3 g/dL (6.6-8.7)
[2024-08-05 17:27] LABS: Add Urine Culture? Yes
--- NOTE | 2024-08-05 17:31 | CTR_ITS ---
PROCEDURE INFORMATION: Exam: CTA Chest With Contrast Exam date and time: 08/05/2024 6:04 PM Age: 28 years old Clinical indication: Abdominal tenderness; Shortness of breath; Prior surgery; Surgery date: 3-7 days post-operative; Surgery type: ; Additional info: SOB, edema TECHNIQUE: Imaging protocol: Computed tomographic angiography of the chest with contrast. Exam focused on the arteries. 3D rendering (Not supervised by radiologist): MIP and/or 3D reconstructed images were created by the technologist. Radiation optimization: All CT scans at this facility use at least one of these dose optimization techniques: automated exposure control; mA and/or kV adjustment per patient size (includes targeted exams where dose is matched to clinical indication); or iterative reconstruction. Contrast material: OMNI 350; Contrast volume: 100 ml; Contrast route: INTRAVENOUS (IV); COMPARISON: CT chest abdpel w/*[id number] 01/26/2023 4:55 AM RADIATION DOSE METRICS: Total DLP (mGy-cm): 1381.69 FINDINGS: Pulmonary arteries: Normal. No pulmonary emboli. Aorta: Unremarkable. No aortic aneurysm. No aortic dissection. Lungs: Faint patchy infiltrate involves both lower lung [place]on. Pleural spaces: Tiny bilateral pleural effusions are noted. Heart: Unremarkable. No cardiomegaly. No pericardial effusion. Lymph nodes: Unremarkable. No enlarged lymph nodes. Bones/joints: Unremarkable. No acute fracture. Soft tissues: Unremarkable. PROCEDURE INFORMATION: Exam: CT Abdomen And Pelvis With Contrast Exam date and time: 08/05/2024 6:04 PM Age: 28 years old Clinical indication: Abdominal tenderness; Shortness of breath; Prior surgery; Surgery date: 3-7 days post-operative; Surgery type: ; Additional info: SOB, edema TECHNIQUE: Imaging protocol: Computed tomography of the abdomen and pelvis with contrast. Radiation optimization: All CT scans at this facility use at least one of these dose optimization techniques: automated exposure control; mA and/or kV adjustment per patient size (includes targeted exams where dose is matched to clinical indication); or iterative reconstruction. Contrast material: OMNI 350; Contrast volume: 100 ml; Contrast route: INTRAVENOUS (IV); COMPARISON: CT chest abdpel w/*[id number] 01/26/2023 4:55 AM RADIATION DOSE METRICS: Total DLP (mGy-cm): 1381.69 FINDINGS: Lungs: Lung bases are clear. No pleural effusion. Liver: Normal. No mass. Gallbladder and biliary ducts: Normal. No calcified stones. No ductal dilation. Pancreas: Normal. No ductal dilation. Spleen: Moderate splenomegaly is noted. Adrenal glands: Normal. No mass. Kidneys and ureters: Normal. No hydronephrosis. Stomach and bowel: Unremarkable. No obstruction. No mucosal thickening. Appendix: No evidence of appendicitis. Intraperitoneal space: Unremarkable. No free air. No significant fluid collection. Vasculature: Unremarkable. No abdominal aortic aneurysm. Lymph nodes: Unremarkable. No enlarged lymph nodes. Urinary bladder: There appears to be a lobulated hematoma lying superior to the bladder and anterior to the uterus. The hematoma contains solid components and measures about 10 cm in greatest diameter. The hematoma is confluence with the anterior pelvic wall. An intact anterior pelvic wall incision is noted. I see no evidence of active contrast extravasation. Reproductive: The uterus is enlarged and irregular due to recent . Bones/joints: Unremarkable. No acute fracture. Soft tissues: See Urinary bladder finding. CT/CT angio chest w abd pel w con IMPRESSION: Faint patchy infiltrate involving both lung bases suspicious for developing pneumonia IMPRESSION: 1. Large pelvic hematoma as detailed above. No active contrast extravasation noted. 2. Stable splenomegaly
--- NOTE | 2024-08-05 17:31 | ECG_ITS ---
[facility]: 2024-08[facility]05 Pat Name: Stacy Gupta Department: Room: Gender: Female Instructional Support Specialist: : 1995 Requested By: Beckie Lopez Order Number: [id number] Yonny MD: ALEXI SANTILLAN Measurements Intervals [place] Rate: 58 P: 1 NM: 159 QRS: 60 QRSD: 85 T: 44 QT: 387 QTc: 382 Interpretive Statements SINUS BRADYCARDIA Compared to ECG 08/05/2024 15:46:26 Sinus rhythm no longer present Sinus arrhythmia no longer present Electronically Signed On 08-06-2024 23:08:08 CDT by ALEXI SANTILLAN [email or web address]
[2024-08-05 17:42] LABS: Influenza A NEGATIVE (Negative); Influenza B NEGATIVE (Negative); Respiratory Syncytial Virus Ce NEGATIVE (Negative); SARS-CoV-2 PCR NEGATIVE (Negative)
[2024-08-05 17:48] LABS: INR 0.97 (0.8-1.2); Partial Thromboplastin Time 30.6 SECONDS (23.9-36.7)
[2024-08-05 17:51] LABS: Troponin(5th) Baseline < 6 ng/L (0-10)
[2024-08-05] MEDS: iohexol 350 mg/mL 500 mL Btl (per mL) IV (18:08)
[2024-08-05 19:12] LABS: Troponin 5 2HR < 6.0 ng/L (0-10); Troponin 5 2HR Delta 0 ABS# (0-10)
[2024-08-05] MEDS: acetaminophen 1,000 MG/100 ML PIGGYBACK 400 MG IV (19:22)
[2024-08-05] MEDS: piperacillin-tazobactam 4.5 GM in sodium chloride 0.9% (plus) 50 ML IV (20:15)
--- NOTE | 2024-08-05 21:49 | ECG_ITS ---
[facility] Date: 2024-[facility]05 Pat Name: Stacy Gupta Department: Room: Gender: Female Sales Operations Specialist: : 1995 Requested By: Beckie Lopez Order Number: [id number] Reading MD: Measurements Intervals [place] Rate: 76 P: 70 CO: 181 QRS: -24 QRSD: 126 T: 44 QT: 401 QTc: 452 Interpretive Statements ELECTRONIC VENTRICULAR PACEMAKER ABNORMAL RHYTHM ECG [email or web address]
--- NOTE | 2024-08-05 22:04 | PC.NURSE ---
pt arrived to room at 2204 from ER. Report recieved by Sonya Hagen Rn from [facility] in ER.
[2024-08-05] MEDS: oxyCODONE-APAP 5-325 mg Tablet 1 TAB PO (22:43)
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
[2024-08-06] VITALS (27 sets, daily range): BP systolic 121–144; BP diastolic 60–86; PULSE 44–80; RESP 14–18; TEMP 36.7–36.9; O2SAT 93–96
[2024-08-06] MEDS: oxyCODONE-APAP 5-325 mg Tablet 1 TAB PO ×3 (02:36→10:13)
[2024-08-06 05:23] LABS: Hematocrit 27.7 % (36-47); Mean Corpuscular HGB Conc 32.9 g/dL (30-55); Mean Corpuscular Hemoglobin 30.8 pg (27-33); Mean Corpuscular Volume 93.9 fl (85-98); Mean Platelet Volume 10.3 fL (7.4-10.4); Platelet Count 265 10^3/cmm (157-399); Red Blood Count 2.95 10^6/uL (3.85-5.65); Red Cell Distribution Width 14.9 % (12.1-15.1); White Blood Count 9.41 10^3/uL (3.29-11.43)
--- NOTE | 2024-08-06 09:50 | P.PN_ITS ---
LEASE ADMINISTRATION SUPERVISOR Subjective 2 Subjective: Interval history: States feeling much better No pain Headache much less Feeling stronger Eating well Vitals/I&O/Wt Last Vital Signs Temp 98.3 F 08/06/24 10:30 Pulse 63 08/06/24 10:30 Resp 17 08/06/24 10:30 BP 137/74 08/06/24 10:30 Pulse Ox 95 08/06/24 01:11 O2 Del Method Room Air 08/05/24 23:04 Physical Exam 2 Narrative: General comfortable, awake, alert VS normal Lungs: clear Cor: RRR Abd: soft, nontender Data 08/06/24 05:14 08/05/24 16:17 A&P Assessment and plan (1) H/O: : s/p repeat July 29, 2024 POD # 8 (2) Anemia: c/o headache, weakness, generalized malaise likely due to anemia s/p transfusion 2 U PRBCs post-transfusion Hgb is 9.1 (from 7.1 prior to transfusion) patient feeling better no evidence of endometritis at this time; patient afebrile, has normal abdominal exam, and has normal white count plan to discharge to home follow-up in clinic continue iron BID (3) Postoperative hematoma: pelvic hematoma, 10 cm normal abdominal exam no evidence of pelvic or abdominal infection at this time plan follow clinically for now consider pelvic sono to follow size of hematoma PDMP PDMP Reviewed: Not Reviewed Attestations 2 Medical Necessity Statement*: patient with h/o , admitted with anemia, s/p transfusions, plan to discharge to home today Coding Level of Care Code Acute Code for Chg Fwd Diagnoses H/O: Z98.891 Anemia D64.9 Postoperative hematoma
--- NOTE | 2024-08-06 10:05 | P.DS_ITS ---
Discharge Providers [employer] Date of Admission: 08/05/24 20:18 Date of Discharge: 08/06/24 Attending Provider at Admission: Gabe Malcolm MD Attending Provider at Discharge: Gabe Malcolm MD Consults: none Primary [employer]: Gabe Malcolm MD Primary Care Provider: Gabe Malcolm MD Diagnoses at Discharge Discharge Diagnosis (1) H/O: : Details from hospital stay: 28 y.o. A2 s/p repeat July 29, 2024 patient had an uncomplicated immediate postoperative course and was discharged to home on POD #3 on August 01, 2024 patient presented to ER on August 05, 2024 with complaints of headache and weakness patient was found to have Hgb of 7.1 there was no evidence of acute infection CT scan showed a 10 cm pelvic hematoma Patient was transfused 2 U PRBCs Following transfusion, patient felt much improved She was clinically stable Had no abdominal pain Was able to eat and ambulate without any difficulties Patient was discharged to home Plan was to follow her hemoglobin and pelvic hematoma clinically as an outpatient Status: Acute (2) Anemia: Details from hospital stay: see above Status: Acute (3) Postoperative hematoma: Details from hospital stay: see above Status: Acute Reason for Visit Reason for Visit: c section on 07/29, SOB, [place], Fever, high bp Brief History: 28 y.o. A2 s/p repeat July 29, 2024 patient had an uncomplicated immediate postoperative course and was discharged to home on POD #3 on August 01, 2024 patient presented to ER on August 05, 2024 with complaints of headache and weakness Hospital Course Hospital Course 28 y.o. A2 s/p repeat July 29, 2024 patient had an uncomplicated immediate postoperative course and was discharged to home on POD #3 on August 01, 2024 patient presented to ER on August 05, 2024 with complaints of headache and weakness patient was found to have Hgb of 7.1 there was no evidence of acute infection CT scan showed a 10 cm pelvic hematoma Patient was transfused 2 U PRBCs Following transfusion, patient felt much improved She was clinically stable Had no abdominal pain Was able to eat and ambulate without any difficulties Patient was discharged to home Plan was to follow her hemoglobin and pelvic hematoma clinically as an outpat ient Physical Exam Narrative: General comfortable, awake, alert VS normal Lungs: clear Cor: RRR Abd: soft, nontender History History History 4 Term 2 0 Miscarriages/Ectopic 2 Living Children 2 Discharge Data Studies Completed and Pending Completed Studies During Hospitalization Category Date Time Status CT Angio Chest + Abdomen Pelvis w/ contrast; 75585 + Cat Scan 08/05/24 17:31 Completed 45318 Stat XR chest 1V portable [id number] Stat Exams 08/05/24 15:34 Completed Radiology Impressions Chest X-Ray 08/05/24 15:34 IMPRESSION: Mild patchy bibasilar opacities could represent infiltrate in the correct clinical setting. Chest/Abdomen/Pelvis CT 08/05/24 17:31 IMPRESSION: Faint patchy infiltrate involving both lung bases suspicious for developing pneumonia IMPRESSION: 1. Large pelvic hematoma as detailed above. No active contrast extravasation noted. 2. Stable splenomegaly Laboratory Results WBC 9.41 10^3/uL (3.29-11.43) 08/06/24 05:14 RBC 2.95 10^6/uL (3.85-5.65) L 08/06/24 05:14 Hgb 9.10 g/dL (11.27-16.99) L 08/06/24 05:14 Hct 27.7 % (36-47) L 08/06/24 05:14 MCV 93.9 fl (85-98) D 08/06/24 05:14 MCH 30.8 pg (27-33) 08/06/24 05:14 MCHC 32.9 g/dL (30-55) D 08/06/24 05:14 RDW 14.9 % (12.1-15.1) 08/06/24 05:14 Plt Count 265 10^3/cmm (157-399) 08/06/24 05:14 MPV 10.3 fL (7.4-10.4) 08/06/24 05:14 Neut % (Auto) 83.9 % 08/05/24 16:17 Lymph % (Auto) 9.2 % 08/05/24 16:17 Cavalier % (Auto) 4.1 % 08/05/24 16:17 Eos % (Auto) 1.7 % 08/05/24 16:17 Baso % (Auto) 0.3 % 08/05/24 16:17 Neut # (Auto) 7.79 10^3/uL (1.8-7.7) H 08/05/24 16:17 Lymph # (Auto) 0.9 10^3/uL (0.8-4.8) 08/05/24 16:17 Cavalier # (Auto) 0.4 10^3/uL (0.2-0.9) 08/05/24 16:17 Eos # (Auto) 0.2 10^3/uL (0.0-0.8) 08/05/24 16:17 Baso # (Auto) 0.0 10^3/uL (0.0-0.1) 08/05/24 16:17 Nucleated RBC % (auto) 0 % 08/05/24 16:17 Nucleated RBCs # 0.0 /100WBC 08/05/24 16:17 PT 13.60 SECONDS (12.1-14.9) 08/05/24 16:17 INR 0.97 (0.8-1.2) 08/05/24 16:17 APTT 30.6 SECONDS (23.9-36.7) 08/05/24 16:17 Sodium 139 mmol/L (136-145) 08/05/24 16:17 Potassium 3.8 mmol/L (3.5-5.1) 08/05/24 16:17 Chloride 106 mmol/L (98-107) 08/05/24 16:17 Carbon Dioxide 20 mmol/L (22-29) L 08/05/24 16:17 Anion Gap 16.8 (5-19) 08/05/24 16:17 BUN 9 mg/dL (6-20) 08/05/24 16:17 Creatinine 0.5 mg/dL (0.5-0.9) 08/05/24 16:17 GFR Calculation 146.9 mL/min (90-130) H 08/05/24 16:17 Glucose 86 mg/dL (65-115) 08/05/24 16:17 Calculated Osmolality 286 mOsm/kg (285-295) 08/05/24 16:17 Lactic Acid 0.8 mmol/L (0.5-2.2) 08/05/24 16:17 Calcium 8.5 mg/dL (8.5-10.5) 08/05/24 16:17 Total Bilirubin 1.2 mg/dL (0.15-1.2) 08/05/24 16:17 AST 13 U/L (0-32) 08/05/24 16:17 ALT 17 U/L (0-33) 08/05/24 16:17 Alkaline Phosphatase 126 U/L (35-105) H 08/05/24 16:17 Troponin T Baseline < 6 ng/L (0-10) 08/05/24 16:17 Troponin T 120 Minute < 6.0 ng/L (0-10) 08/05/24 18:30 Delta Troponin T 0 ABS# (0-10) 08/05/24 18:30 C-Reactive Protein 119.3 mg/L (0.0-4.9) H 08/05/24 16:17 NT-Pro-B Natriuret Pep 363 pg/mL (0-125) H 08/05/24 16:17 Total Protein 6.3 g/dL (6.6-8.7) L 08/05/24 16:17 Albumin 3.1 g/dL (3.5-5.2) L 08/05/24 16:17 Globulin 3.2 g/dL (1.3-4.6) 08/05/24 16:17 Urine Color Dark yellow (Yellow) A 08/05/24 16:16 Urine Appearance Clear (CLEAR) 08/05/24 16:16 Urine pH 8.0 (5-7) A 08/05/24 16:16 Ur Specific [place] 1.027 (1.005-1.030) 08/05/24 16:16 Urine Protein 1+ (Negative) A 08/05/24 16:16 Urine Glucose (UA) Negative (Normal) 08/05/24 16:16 Urine Ketones Trace (Negative) 08/05/24 16:16 Urine Blood 3+ (Negative) A 08/05/24 16:16 Urine Nitrate Negative (Negative) 08/05/24 16:16 Urine Bilirubin Negative (Negative) 08/05/24 16:16 Urine Urobilinogen 1.0 mg/dL (Negative) 08/05/24 16:16 Ur Leukocyte Esterase Trace (Negative) A 08/05/24 16:16 Urine RBC 11-20 /hpf (0-2) H 08/05/24 16:16 Urine WBC 6-10 /hpf (0-5) 08/05/24 16:16 Ur Squamous Epith Cells 0-5 /hpf (0-5) 08/05/24 16:16 Amorphous Sediment Not Reportable 08/05/24 16:16 Urine Bacteria None seen /hpf (NONE) 08/05/24 16:16 Hyaline Casts 0-4 /lpf H 08/05/24 16:16 Influenza A (PCR) Negative (Negative) 08/05/24 15:47 Influenza Type B (PCR) Negative (Negative) 08/05/24 15:47 RSV (PCR) Negative (Negative) 08/05/24 15:47 SARS-CoV-2 (PCR) Negative (Negative) 08/05/24 15:47 Blood Type B Positive 08/05/24 18:30 Rho(D) Type Rh positive 08/05/24 18:30 Antibody Screen Negative 08/05/24 18:30 Crossmatch See Detail 08/05/24 18:30 Procedures Performed blood transfusions Vitals Last Vital Signs Temp 98.3 F 08/06/24 10:30 Pulse 63 08/06/24 10:30 Resp 17 08/06/24 10:30 BP 137/74 08/06/24 10:30 Pulse Ox 95 08/06/24 01:11 O2 Del Method Room Air 08/05/24 23:04 Results Labs OB ([facility]): Obstetrics US 06/24/24 Blood Type B Positive 08/05/24 Antibody Screen Negative 08/05/24 Hct, (36-47) 27.7 % L 08/06/24 Hgb, (11.27-16.99) 9.10 g/dL L 08/06/24 Rho(D) Type Rh positive 08/05/24 Plt Count, (157-399) 265 10^3/cmm 08/06/24 Hep Bs Antigen, (Nonreactive) Non-reactive 01/10/24 Hepatitis C Antibody, (Nonreactive) Non-reactive 09/25 Rubella IgG Antibody, (0.0-10.0) 117.3 IU/mL H 4 RPR, (Nonreactive) Nonreactive 01/10/24 HIV 1&2 Ab & HIV 1 Ag, (Non-Reactiv) Non-reactive 09/25 TSH, (0.27-4.20) 0.41 uIU/mL 01/10/24 C.trachomatis RNA (TMA), (NOT DETECTED) Not detected 01/10/24 N.gonorrhoeae RNA (TMA), (NOT DETECTED) Not detected 01/10/24 T. vaginalis Amp RNA, (NOT DETECTED) Not detected 09/25 Chlamydia/GC Comment See note 01/10/24 Glucose 1 Hr 50 gm, (85-140) 103 mg/dL 05/16/24 Uric Acid, (2.4-5.7) 3.7 mg/dL 07/06/24 Ser , Semi-Qnt 32954.00 mIU/mL 12/10/23 HCG, Qual, (Negative) Positive H 11/29/23 Urine Opiates Screen, (Negative) Negative ng/mL 5 Ur Barbiturates Screen, (Negative) Negative ng/mL 07/29 Ur Phencyclidine Scrn, (Negative) Negative ng/mL Ur Amphetamines Screen, (Negative) Negative ng/mL 07/29 U Benzodiazepines Scrn, (Negative) Negative ng/mL 07/29 Urine Cocaine Screen, (Negative) Negative ng/mL 5 U Marijuana (THC) Screen, (Negative) Negative ng/mL Micro Urine Specimen 08/05/24 Pap Smear Interpret See note A 01/30/24 Discharge Plan Discharge Patient Disposition: Home Condition: Stable Prescriptions: Continued Gummies 400 mcg-35 mg- 25 mg-5 mg Tablet,Chewable 1 tab PO DAILY ferrous sulfate 27 mg iron Tablet 27 mg PO DAILY acetaminophen [Tylenol] 325 mg Tablet 650 mg PO QID PRN (Reason: Fever Or Pain) ibuprofen [Advil] 200 mg Tablet 200 mg PO Q6H PRN (Reason: Fever Or Pain) docusate sodium [Stool Softener] 100 mg Capsule 100 mg PO BID PRN (Reason: Constipation) No Action sulfamethoxazole-trimethoprim [Bactrim DS] 800-160 mg tablet 1 tab PO BID 7 Days Qty: 14 0RF hydrocodone-acetaminophen 5-325 mg tablet 1 - 2 tab PO Q6H PRN (Reason: Moderate To Severe Pain) 7 Days Qty: 30 0RF Discharge Orders: Discharge Order (Routine); Ordered 08/06/24 Ordered By: Gabe Malcolm Referrals: Gabe Malcolm MD [Primary Care Provider, [employer]] - 08/18/24 8:30 am Referral Note: 6 week-09/09/24 1045 US- 08/12/24 1430 Discharge Diet: Usual diet Discharge Activity: Increase activity as tolerated Patient Instructions: Viral Pneumonia (DC), OB [facility], Opioid Safety Activity Restrictions/Additional Instructions: Take Mucinex-D as directed Take iron 1-2 x / day followup with me in one week Discharge Attestations [employer] Time Spent in Discharge Care*: less than 30 min Coding Level of Care Code Acute Code for Chg Fwd Diagnoses H/O: Z98.891 Anemia D64.9 Postoperative hematoma
== END 2024-08-06 10:30 | disposition home or self-care (01) ==
LOC: ER 20:47 → OBGYN 21:51
PROVIDERS: Admitting Provider Obstetrics & Gynecology; Emergency Provider Emergency Medicine; PCP Obstetrics & Gynecology; Visit Provider Obstetrics & Gynecology
DX: O90.81 Anemia of the puerperium (principal); O90.2 Hematoma of obstetric wound; O90.89 Other complications of the puerperium, not elsewhere classified; O99.53 Diseases of the respiratory system complicating the puerperium; J18.9 Pneumonia, unspecified organism; Z11.52 Encounter for screening for COVID-19; F41.8 Other specified anxiety disorders
CPT/HCPCS: 36415; 71045; 71275; 74177; 80053; 81001; 83605; 83880; 84484; 85025; 85027; 85610; 85730; 86140; 86850; 86900; 86920; 87040; 87086; 87637; 93005; 96365; 96375; 99285; G0378; J0131; J2543; J9999; P9016

== ENCOUNTER → 2024-08-13 07:53 | Outpatient (BNVA) | payer BC, MEDICAID, SELFPAY | PROVIDERS: PCP Obstetrics & Gynecology; Visit Provider Obstetrics & Gynecology | DX: O72.2 Delayed and secondary postpartum hemorrhage (principal) | CPT/HCPCS: 76830 ==

== ENCOUNTER 2024-08-25 14:36 | Outpatient (CLI) | payer BC, MEDICAID, SELFPAY ==
--- NOTE | 2024-08-25 14:45 | US_ITS ---
WS: [id number] US transvaginal [id number] HISTORY: Follow-up pelvic hematoma. COMPARISON: Prior ultrasound 08/13/[address] 08/05/2024 Uterus: 11.8 cm x 5.0 cm x 5.1 cm. Anteverted uterus is decreasing in size. Endometrium: 1.7 cm. Normal endometrium. There is a complex collection along the lower endocervical junction which is probably at the site of the scar. This site is contiguous with the pelvic hematoma. This complex collection measures 2.7 x 2.5 x 1.9 cm and not changed significantly since the prior ultrasound. There is a defect within the lower uterine wall at the site of the which is contiguous with the complex fluid collection in the pelvis consistent with a pelvic hematoma. The hematoma is difficult to visualize on the transvaginal imaging. Transabdominal imaging was also performed. The complex collection is difficult to measure due to its multifocal appearance. Collection measures at least 7.9 x 3.9 cm. There has been no obvious increase in size. Right ovary: 4.0 cm x 2.2 cm x 3.4 cm. Normal size and vascularity, no cystic or solid masses. Left ovary: 3.3 cm x 3.0 cm x 3.5 cm. Normal size and vascularity, no cystic or solid masses. Small amount of free fluid in the pelvis. US/US transvaginal [id number] IMPRESSION: 1. Limited quality evaluation of the pelvic structures. 2. Reidentified is an irregular, complex pelvic hematoma. Exact measurements a re difficult to determine due to its multi nodular appearance. Largest diameter is 7.9 x 3.9 cm. Pelvic hematoma is contiguous with the defect in the lower ut erine segment which is likely a scar. 3. Hematoma through the scar is unchanged measuring 2.7 x 2.5 x 1.9 cm. Hematoma extends into the endocervical junction. Patient denies any vaginal bleeding at this time.
== END 2024-08-25 14:37 | disposition home or self-care (01) ==
LOC: RAD 14:37
PROVIDERS: PCP Obstetrics & Gynecology; Visit Provider Obstetrics & Gynecology
DX: N94.89 Other specified conditions associated with female genital organs and menstrual cycle (principal); R93.89 Abnormal findings on diagnostic imaging of other specified body structures
CPT/HCPCS: 76830

== ENCOUNTER → 2024-09-04 11:42 | Outpatient (BNVA) | payer BC, MEDICAID, SELFPAY | PROVIDERS: PCP Obstetrics & Gynecology; Visit Provider Obstetrics & Gynecology | DX: D64.9 Anemia, unspecified (principal) | CPT/HCPCS: 85025 ==

== ENCOUNTER → 2024-10-06 10:30 | Outpatient (BNVA) | payer BC, MEDICAID, SELFPAY | PROVIDERS: PCP Obstetrics & Gynecology; Visit Provider Obstetrics & Gynecology | DX: O90.2 Hematoma of obstetric wound (principal) | CPT/HCPCS: 76830 ==

== ENCOUNTER 2024-10-08 11:55 | Emergency (ER) | payer SELFPAY ==
[2024-10-08 12:12] VITALS: BP 128/74; PULSE 84; RESP 16; TEMP 36.8; O2SAT 98; BMI 35.5
[2024-10-08] MEDS: tetanus-dipt-pertussis 0.5 mL SDV IM (13:16)
[2024-10-08 13:20] VITALS: BP 118/80; PULSE 65; O2SAT 97
--- NOTE | 2024-10-08 14:05 | ED_ITS ---
HPI - Wound/Laceration General: Chief Complaint: Wound/Laceration Stated Complaint: staple in L hand Time Seen by Provider: 10/08/24 12:43 History of Present Illness: 28-year-old female presents emergency ro om with staple in her left hand. Self- inflicted wound while using a stapler at home to put some objects on the wall. Staple gun was reversed did not realize it and when it fired it hit her in the hand. She has a staple typical U-shaped [employer] type constructions staple embed ded to it is healed on the heel of the left hand at the midline distal to the wrist crease by about 2 inches. No active bleeding moderately uncomfortable. Unsure of last tetanus Related Data Home Medications ?Medication ?Instructions ?Recorded ?Confirmed acetaminophen 325 mg tablet 650 mg PO QID PRN Fever Or Pain 08/02/24 10/08/24 (Tylenol) Previous Rx's ?Medication ?Instructions ?Recorded hydroxyzine pamoate 25 mg capsule 25 mg PO BID PRN anx iety #60 caps 09/15/24 medroxyprogesterone 150 mg/mL 150 mg IM .12 weeks #1 m L 09/15/24 intramuscular suspension (Depo-Provera) cephalexin 500 mg capsule 500 mg PO TID #15 caps 10/08 hydrocodone 5 mg-acetaminophen 325 1 tab PO Q6H PRN pa in #5 tabs 10/08/24 mg tablet Allergies Allergy/AdvReac Type Severity Reaction Status Date / Time No Known Allergies Allergy Verified 10/08/24 08:47 [facility] ED PFSH: Medical History Acid reflux History of recurrent miscarriages Anxiety and depression Depression Surgical History H/O: Family History Mother Hyperlipidemia Father Hypertension Diabetes Denies family history of Colon cancer Ovarian cancer Heart disease Breast cancer Uterine cancer Thyroid disease Stroke Social History Smoking and tobacco/nicotine status: never used tobacco/nicotine Alcohol intake: never Physical Exam Extremity: OTHER: Staple fully embedded to the healed. After removal no active bleeding mild discomfort Mild numbness around the area of the staple before and after removal Procedures Foreign Body Removal Time Out Performed: yes Site: left and hand Description of foreign body: other (Staple) Sedation/Analgesia: none Technique: removal with forceps Confirmed by:: direct visualization Complications: none Post-procedure exam: awake, alert Neurovascular: normal distal pulse, normal capillary fill and no change from pre-procedure Course Vital Signs: Vital signs: Vital Signs Temperature 98.2 F 10/08/24 12:12 Pulse Rate 65 10/08/24 13:20 Respiratory Rate 16 10/08/24 12:12 Blood Pressure 118/80 10/08/24 13:20 Pulse Oximetry 97 10/08/24 13:20 Oxygen Delivery Me thod Room Air 10/08/24 12:12 MDM - Wound/Laceration Medical Decision Making Discussed options the patient ultimately decided to go ahead and remove directly as a advised of this her primary last painful then using a local in that region. She does have some numbness localized to where the stab incision was. Tetanus was updated put her on prophylactic cephalexin discharge her home with pain medications follow-up with primary care return if has any worsening or pain or signs of infection No radiology studies performed this visit Discharge Plan Discharge Patient Disposition: Home Clinical Impression: Foreign body (FB) in soft tissue Condition: Stable Prescriptions: New hydrocodone-acetaminophen 5-325 mg tablet 1 tab PO Q6H PRN (Reason: pain) Qty: 5 0RF cephalexin 500 mg capsule 500 mg PO TID Qty: 15 0RF No Action medroxyprogesterone [Depo-Provera] 150 mg/mL suspension 150 mg IM .12 weeks Qty: 1 3RF Rx Instructions: inject IM every 12 weeks hydroxyzine pamoate 25 mg capsule 25 mg PO BID PRN (Reason: anxiety) Qty: 60 1RF Rx Instructions: take 1-2 tabs as needed every 12 hours acetaminophen [Tylenol] 325 mg Tablet 650 mg PO QID PRN (Reason: Fever Or Pain) Discharge Orders: Discharge ED (Routine); Ordered 10/08/24 Ordered By: Jovany Persaud Discharge Diet: Usual diet Discharge Activity: Increase activity as tolerated Patient Instructions: Opioid Safety, Pain Management, Patient Portal & [place] Instructions Activity Restrictions/Additional Instructions: Thank you for choosing [facility] for your healthcare needs today. It is very important that you follow up as instructed or that you return to the Emergency Department should you have concerns or if your condition changes or worsens in any way. You were seen in the emergency room after being impaled in the hand by a staple. Staple was removed in the emergency room your tetanus was updated. You are discharged home pain medications and 5 days of IV antibiotics there is any signs of infection return to the emergency room. You may experience some numbness in the area that the staple was in for several weeks even months. 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
== END 2024-10-08 13:24 | disposition home or self-care (01) ==
PROVIDERS: Emergency Provider Family Medicine
DX: S61.442A Puncture wound with foreign body of left hand, initial encounter (principal); W45.8XXA Other foreign body or object entering through skin, initial encounter
CPT/HCPCS: 90471; 90715; 99283